=== PATIENT | male | born 1955 | race Caucasian/White ===

== ENCOUNTER 2017-05-17 12:34 | Inpatient (IN) | payer OTHER ==
[2017-05-17] MEDS ORDERED: Sodium Chloride 0.9% 10 ML Syringe FLUSH PRN (13:20)
[2017-05-17] MEDS: Sodium Chloride 0.9% 1,000 ML IV SCH ×2 (13:44→20:11)
--- NOTE | 2017-05-17 14:02 | EDM.PDOC ---
ED HPI GENERAL MEDICAL PROBLEM - General Chief Complaint: Gastrointestinal Problem Stated Complaint: BLOODY STOOLS Time Seen by Provider: 05/17/17 13:08 Source of Information: Reports: Patient, RN Notes Reviewed - History of Present Illness INITIAL COMMENTS - FREE TEXT/NARRATIVE: 61-year-old male comes in with 6 or 7 episodes of bloody stool this morning. He describes this as starting out as diarrhea but there was blood with that from the beginning. There has been more blood with subsequent episodes. This first started this morning about 5 or 6 hours ago. He has had no abdominal pain or cramping. He's had no nausea or vomiting. He has never had difficulty this nature before. He was not feeling sick at all yesterday or last evening. He does take one adult aspirin daily. He has no history for peptic ulcer disease or known prior GI problems. States he did have a colonoscopy about one year ago. He had one or 2 small polyps removed at that time. He is on aspirin 325 daily with hx of prior CVA. He has had recent URI, bronchitis. He currently is on tapering prednisone. He runs high hgb, hx sleep apnea. - Related Data Allergies Allergy/AdvReac Type Severity Reaction Status Date / Time adhesive tape Allergy Rash Verified 05/17/17 13:23 [id number] Reductase Allergy Other Verified 05/17/17 13:23 Inhibitor Home Meds: Home Meds Areds Multivitamin 2 tab PO DAILY 05/17/17 [History] Aspirin [Ecotrin] 325 mg PO DAILY 05/17/17 [History] Azelastine HCl [Astepro] 1 dose PO BID 05/17/17 [History] Cetirizine [ZyrTEC] 10 mg PO DAILY 05/17/17 [History] Cholecalciferol (Vitamin D3) [Vitamin D3] 5,000 units PO DAILY 05/17/17 [History ] EPINEPHrine [Auvi-Q] 0.3 mg IJ ASDIRECTED PRN 05/17/17 [History] Ezetimibe [Zetia] 10 mg PO DAILY 05/17/17 [History] Fenofibric Acid (Choline) [Fenofibric Acid] 135 mg PO DAILY 05/17/17 [History] Finasteride 5 mg PO DAILY 05/17/17 [History] Fluticasone Propionate [Flovent] 1 puff INH BID 05/17/17 [History] Meclizine [Antivert] 25 mg PO DAILY PRN 05/17/17 [History] Montelukast [Singulair] 10 mg PO DAILY 05/17/17 [History] Niacin [Niacin ER] 500 mg PO DAILY 05/17/17 [History] Olmesartan/Hydrochlorothiazide [Benicar HCT 40-25 MG] 0.5 tab PO DAILY 05/17/17 [History] Olmesartan/Hydrochlorothiazide [Benicar HCT 40-25 MG] 0.5 tab PO DAILY 05/17/17 [History] [place]-3S/DHA/Epa/Fish Oil [Fish Oil [place]-3 Softgel] 2 each PO DAILY 05/17/17 [ History] Omeprazole 2 tab PO DAILY 05/17/17 [History] Oxygen 1 appful INH BEDTIME 05/17/17 [History] Prednisone [IJD: Prednisone] 10 mg PO ASDIRECTED 05/17/17 [History] Sildenafil [Viagra] 100 mg PO ASDIRECTED PRN 05/17/17 [History] Sodium Chloride [Saline Mist] 1 dose NS BID 05/17/17 [History] Terazosin [Hytrin] 5 mg PO DAILY 05/17/17 [History] Testosterone Cypionate 1 ml IM ASDIRECTED 05/17/17 [History] Vitamin B Complex 1 each PO DAILY 05/17/17 [History] diphenhydrAMINE HCl [Benadryl] 50 mg PO DAILY 05/17/17 [History] Past Medical History Neurological History: Reports: CVA - Past Surgical History HEENT Surgical History: Reports: Oral Surgery, Other (See Below) Other HEENT Surgeries/Procedures: turbinectomy, septoplasty GI Surgical History: Reports: Cholecystectomy, Hernia, Abdominal Social & Family History - Tobacco Use Smoking Status *Q: Never Smoker - Caffeine Use Caffeine Use: Reports: Coffee - Recreational Drug Use Recreational Drug Use: No ED ROS GENERAL - Review of Systems Review Of Systems: See Below Constitutional: Denies: Fever, Chills, Diaphoresis HEENT: Denies: Throat Pain Respiratory: Denies: Shortness of Breath, Pleuritic Chest Pain Cardiovascular: Denies: Chest Pain GI/Abdominal: Reports: Hematochezia. Denies: Abdominal Pain, Diarrhea, Nausea, Vomiting Musculoskeletal: Reports: No Symptoms Skin: Reports: No Symptoms Neurological: Reports: No Symptoms ED EXAM, GI/ABD - Physical Exam Exam: See Below General Appearance: Alert, No Apparent Distress Eyes: Bilateral: Normal Appearance Throat/Mouth: Normal Inspection, Normal Oropharynx Head: No: Facial Swelling Neck: Supple, Full Range of Motion Respiratory/Chest: No Respiratory Distress, Lungs Clear, Normal Breath Sounds Cardiovascular: Regular Rate, Rhythm GI/Abdominal Exam: Soft, Non-Tender, Distended. No: Guarding, Rebound Rectal (Males) Exam: Bloody Stool (Small amount red to slightly dark red blood, no stool present, no palpable mass, no unusual tenderness) Back Exam: No: CVA Tenderness (L), CVA Tenderness (R) Extremities: Normal Inspection, Normal Range of Motion Neurological: Alert, Oriented, No Motor/Sensory Deficits Skin Exam: Warm, Dry, Normal Color Course - Vital Signs Last Recorded V/S: Last Vital Signs Temp 98.5 F 05/17/17 13:03 Pulse 76 05/17/17 16:04 Resp 18 05/17/17 16:04 BP 138/82 05/17/17 16:04 Pulse Ox 93 L 05/17/17 16:04 Orthostatic Blood Pressure [ 126/76 Sitting] Orthostatic Blood Pressure [ 113/84 Standing] Orthostatic Blood Pressure [ 124/77 Supine] - Orders/Labs/Meds Orders: Active Orders 24 hr Category Date Time Status Peripheral IV Care [RC] . DIRECTED Care 05/17/17 13:20 Active PATIENT RETYPE [BBK] Stat Lab 05/17/17 13:35 Results TYPE AND SCREEN [BBK] Stat Lab 05/17/17 13:35 Results Sodium Chloride 0.9% [Normal Saline] 1,000 ml Med 05/17/17 13:30 Active IV ASDIRECTED Sodium Chloride 0.9% [Saline Flush] Med 05/17/17 13:20 Active 10 ml FLUSH ASDIRECTED PRN Peripheral IV Insertion Adult [OM.PC] Stat Oth 05/17/17 13:19 Ordered Medication Orders Sodium Chloride (Normal Saline) 1,000 mls @ 150 mls/hr IV ASDIRECTED GISELA Last Admin: 05/17/17 13:44 Dose: 150 mls/hr Sodium Chloride (Saline Flush) 10 ml FLUSH ASDIRECTED PRN PRN Reason: Keep Vein Open Last Admin: 05/17/17 13:46 Dose: 10 ml Labs: Laboratory Tests 05/17/17 05/17/17 05/17/17 Range/Units 13:35 13:35 13:35 WBC 14.77 H (4.23-9.07) K/mm3 RBC 5.88 (4.63-6.08) M/mm3 Hgb 17.8 H (13.7-17.5) gm/L Hct 55.2 H (40.1-51.0) % MCV 93.9 H (79.0-92.2) fl MCH 30.3 (25.7-32.2) pg MCHC 32.2 (32.2-35.5) g/dl RDW Std Deviation 47.7 H (35.1-43.9) fL Plt Count 247 (163-337) K/mm3 MPV 11.1 (9.4-12.3) fl Neut % (Auto) 79.4 H (34.0-67.9) % Lymph % (Auto) 14.1 L (21.8-53.1) % [place] % (Auto) 3.9 L (5.3-12.2) % Eos % (Auto) 0.1 L (0.8-7.0) Baso % (Auto) 0.1 (0.1-1.2) % Neut # (Auto) 11.72 H (1.78-5.38) K/mm3 Lymph # (Auto) 2.08 (1.32-3.57) K/mm3 [place] # (Auto) 0.58 (0.30-0.82) K/mm3 Eos # (Auto) 0.02 L (0.04-0.54) K/mm3 Baso # (Auto) 0.02 (0.01-0.08) K/mm3 Manual Slide Review Normal smear PT (8.0-13.0) SECONDS INR APTT 26 (22-36) SECONDS Sodium 136 (136-145) mEq/L Potassium 4.2 (3.5-5.1) mEq/L Chloride 103 (98-107) mEq/L Carbon Dioxide 27 (21-32) mEq/L Anion Gap 10.2 (5-15) BUN 19 H (7-18) mg/dL Creatinine 1.3 (0.7-1.3) mg/dL Est Cr Clr Drug Dosing 67.62 mL/min Estimated GFR (MDRD) 56 (>60) mL/min BUN/Creatinine Ratio 14.6 (14-18) Glucose 140 H (80-115) mg/dL Calcium 8.7 (8.5-10.1) mg/dL Total Bilirubin 0.6 (0.2-1.0) mg/dL AST 15 (15-37) U/L ALT 28 (16-63) U/L Alkaline Phosphatase 45 L (46-116) U/L Total Protein 6.8 (6.4-8.2) g/dl Albumin 3.3 L (3.4-5.0) g/dl Globulin 3.5 gm/dL Albumin/Globulin Ratio 0.9 L (1-2) Blood Type Gel Antibody Screen 05/17/17 05/17/17 Range/Units 13:35 13:35 WBC (4.23-9.07) K/mm3 RBC (4.63-6.08) M/mm3 Hgb (13.7-17.5) gm/L Hct (40.1-51.0) % MCV (79.0-92.2) fl MCH (25.7-32.2) pg MCHC (32.2-35.5) g/dl RDW Std Deviation (35.1-43.9) fL Plt Count (163-337) K/mm3 MPV (9.4-12.3) fl Neut % (Auto) (34.0-67.9) % Lymph % (Auto) (21.8-53.1) % [place] % (Auto) (5.3-12.2) % Eos % (Auto) (0.8-7.0) Baso % (Auto) (0.1-1.2) % Neut # (Auto) (1.78-5.38) K/mm3 Lymph # (Auto) (1.32-3.57) K/mm3 [place] # (Auto) (0.30-0.82) K/mm3 Eos # (Auto) (0.04-0.54) K/mm3 Baso # (Auto) (0.01-0.08) K/mm3 Manual Slide Review PT 11.6 (8.0-13.0) SECONDS INR 1.06 APTT (22-36) SECONDS Sodium (136-145) mEq/L Potassium (3.5-5.1) mEq/L Chloride (98-107) mEq/L Carbon Dioxide (21-32) mEq/L Anion Gap (5-15) BUN (7-18) mg/dL Creatinine (0.7-1.3) mg/dL Est Cr Clr Drug Dosing mL/min Estimated GFR (MDRD) (>60) mL/min BUN/Creatinine Ratio (14-18) Glucose (80-115) mg/dL Calcium (8.5-10.1) mg/dL Total Bilirubin (0.2-1.0) mg/dL AST (15-37) U/L ALT (16-63) U/L Alkaline Phosphatase (46-116) U/L Total Protein (6.4-8.2) g/dl Albumin (3.4-5.0) g/dl Globulin gm/dL Albumin/Globulin Ratio (1-2) Blood Type O POSITIVE Gel Antibody Screen Negative Meds: Medications Generic Name Dose Route Start Last Admin Trade Name Freq PRN Reason Stop Dose Admin Sodium Chloride 1,000 mls @ 150 mls/hr 05/17/17 13:30 05/17/17 13:44 Normal Saline IV 150 mls/hr ASDIRECTED GISELA Administration Sodium Chloride 10 ml 05/17/17 13:20 05/17/17 13:46 Saline Flush FLUSH 10 ml ASDIRECTED PRN Administration Keep Vein Open - Re-Assessments/Exams Free Text/Narrative Re-Assessment/Exam: 05/17/17 16:38. Labs are as documented. Did you orthosis, blood pressure dropped from 05/06/76 lying to 113/84 standing. Heart rate increased from 77 lying to 93 standing. We will go but is come back at 17.8. His states that he does run very high hemoglobin is on his "sleep apnea". He did have a course of antibiotics about 2 weeks ago finishing that about 4 days ago for his bronchitis, upper respiratory infection. He and his cannot tell us what that was at this time. Will put in order to check for C. difficile colitis. He has had 3 or 4 large episodes of bloody stool versus bloody diarrhea while here in the ED over the past 3 hours. His does not show any sign of comfort taking him home. Will admit for further evaluation and treatment. Departure - Departure Time of Disposition: 15:40 Disposition: Home, Self-Care 01 Condition: Fair Clinical Impression: GI bleeding Qualifiers: GI bleed type/associated pathology: unspecified gastrointestinal hemorrhage type Qualified Code(s): K92.2 - Gastrointestinal hemorrhage, unspecified - Discharge Information ED Communication - Discussed Case With (1) Discussed Case With (1): Admitting Provider (Dr Cerda, decision to admit at about 16:10) - My Orders Last 24 Hours: My Active Orders 05/17/17 13:19 Peripheral IV Insertion Adult [OM.PC] Stat 05/17/17 13:20 Peripheral IV Care [RC] . DIRECTED Sodium Chloride 0.9% [Saline Flush] 10 ml FLUSH ASDIRECTED PRN 05/17/17 13:30 Sodium Chloride 0.9% [Normal Saline] 1,000 ml IV ASDIRECTED 05/17/17 13:35 PATIENT RETYPE [BBK] Stat TYPE AND SCREEN [BBK] Stat - Assessment/Plan Last 24 Hours: My Active Orders 05/17/17 13:19 Peripheral IV Insertion Adult [OM.PC] Stat 05/17/17 13:20 Peripheral IV Care [RC] . DIRECTED Sodium Chloride 0.9% [Saline Flush] 10 ml FLUSH ASDIRECTED PRN 05/17/17 13:30 Sodium Chloride 0.9% [Normal Saline] 1,000 ml IV ASDIRECTED 05/17/17 13:35 PATIENT RETYPE [BBK] Stat TYPE AND SCREEN [BBK] Stat
--- NOTE | 2017-05-17 17:34 | PCM.HP ---
H&P History of Present Illness - General Date of Service: 05/17/17 Admit Problem/Dx: Admission Diagnosis/Problem Admission Diagnosis/Problem Rectal hemorrhage Source of Information: Patient, Family, Provider, RN Notes Reviewed, Significant Other History Limitations: Reports: No Limitations - History of Present Illness Initial Comments - Free Text/Narative: This is a 61-year-old white male with past medical history of Allergic Rhinitis/ Seasonal Allergy, HTN, HLD, GERD, RAD/Pulmonary Insufficiency, Nocturnal Hypoxemia/ROSA ELENA on 1L NC at Bedtime, Vit D Deficiency, Probable Prostate Disorder , Erectile Dysfunction, and Testosterone Deficiency who comes in with complaints of multiple episode of rectal bleed that started this morning. He reports a bloody stool but no quite sure if bright red blood per rectum. He denies having black tarry stools. He takes daily ASA but no over the counter NSAIDs. Patient carries no hx/o GI problems. He denies having been diagnosed with diverticulosis or hemorrhoids. His last colonoscopy was done about a year ago performed by Dr. Hector with benign findings according to his . Patient was recently diagnosed with URI/bronchitis and currently on taper dose of oral steroid. His initial workup in the emergency department shows a CBC remarkable for WBC of 14.77, hemoglobin of 17.8, hematocrit of 35.2, MCV of 93.9 , RDW of 47.7, neutrophils of 79.4%, lymphocytes of 14.1%, monocytes of 2.9%, and eosinophils of 0.1%. His coagulation studies are within normal limits. His chemistry is remarkable for BUN of 19, glucose of 140, alkaline phosphatase of 45, and albumin of 3.3. Most recent vital signs are temperature of 36.9C, heart rate of 78 bpm, respiratory rate 18 with 93% O2 sat on room air and a blood pressure of 139/70 mmHg. He is being admitted for evaluation of acute GI bleed. He is full code. - Related Data Allergies/Adverse Reactions: Allergies Allergy/AdvReac Type Severity Reaction Status Date / Time adhesive tape Allergy Rash Verified 05/17/17 13:23 [id number] Reductase Allergy Other Verified 05/17/17 13:23 Inhibitor Home Medications: Home Meds Areds Multivitamin 2 tab PO DAILY 05/17/17 [History] Aspirin [Ecotrin] 325 mg PO DAILY 05/17/17 [History] Azelastine HCl [Astepro] 1 dose PO BID 05/17/17 [History] Cetirizine [ZyrTEC] 10 mg PO DAILY 05/17/17 [History] Cholecalciferol (Vitamin D3) [Vitamin D3] 5,000 units PO DAILY 05/17/17 [History ] EPINEPHrine [Auvi-Q] 0.3 mg IJ ASDIRECTED PRN 05/17/17 [History] Ezetimibe [Zetia] 10 mg PO DAILY 05/17/17 [History] Fenofibric Acid (Choline) [Fenofibric Acid] 135 mg PO DAILY 05/17/17 [History] Finasteride 5 mg PO DAILY 05/17/17 [History] Fluticasone Propionate [Flovent] 1 puff INH BID 05/17/17 [History] Meclizine [Antivert] 25 mg PO DAILY PRN 05/17/17 [History] Montelukast [Singulair] 10 mg PO DAILY 05/17/17 [History] Niacin [Niacin ER] 500 mg PO DAILY 05/17/17 [History] Olmesartan/Hydrochlorothiazide [Benicar HCT 40-25 MG] 0.5 tab PO DAILY 05/17/17 [History] Olmesartan/Hydrochlorothiazide [Benicar HCT 40-25 MG] 0.5 tab PO DAILY 05/17/17 [History] [place]-3S/DHA/Epa/Fish Oil [Fish Oil [place]-3 Softgel] 2 each PO DAILY 05/17/17 [ History] Omeprazole 2 tab PO DAILY 05/17/17 [History] Oxygen 1 appful INH BEDTIME 05/17/17 [History] Prednisone [IJD: Prednisone] 10 mg PO ASDIRECTED 05/17/17 [History] Sildenafil [Viagra] 100 mg PO ASDIRECTED PRN 05/17/17 [History] Sodium Chloride [Saline Mist] 1 dose NS BID 05/17/17 [History] Terazosin [Hytrin] 5 mg PO DAILY 05/17/17 [History] Testosterone Cypionate 1 ml IM ASDIRECTED 05/17/17 [History] Vitamin B Complex 1 each PO DAILY 05/17/17 [History] diphenhydrAMINE HCl [Benadryl] 50 mg PO DAILY 05/17/17 [History] Past Medical History Neurological History: Reports: CVA - Past Surgical History HEENT Surgical History: Reports: Oral Surgery, Other (See Below) Other HEENT Surgeries/Procedures: turbinectomy, septoplasty GI Surgical History: Reports: Cholecystectomy, Hernia, Abdominal Social & Family History - Tobacco Use Smoking Status *Q: Never Smoker - Caffeine Use Caffeine Use: Reports: Coffee - Recreational Drug Use Recreational Drug Use: No H&P Review of Systems - Review of Systems: Review Of Systems: See Below General: Denies: Fever, Chills, Malaise, Weakness, Fatigue, Decreased Appetite, Weight Loss HEENT: Reports: No Symptoms Pulmonary: Denies: Shortness of Breath Cardiovascular: Denies: Chest Pain, Palpitations, Dyspnea on Exertion, Lightheadedness, Syncope Gastrointestinal: Reports: Flatus, Hematochezia. Denies: Abdominal Pain, Anorexia, Black Stool, Bloody Stool, Constipation, Diarrhea, Decreased Appetite , Difficulty Swallowing, Distension, Hematemesis, Melena, Mucous in Stool, Nausea, Stool Incontinence, Vomiting Genitourinary: Reports: No Symptoms Musculoskeletal: Reports: No Symptoms Skin: Denies: Cyanosis, Mottled, Pallor, Diaphoresis, Bruising, Pruritis, Rash, Change in Color, Change in Hair/Nails Psychiatric: Denies: Confusion, Depression, Anxiety, Agitation, Hallucinations, Suicidal Ideation, Homicidal Ideation Neurological: Denies: Confusion, Dizziness, Syncope, Difficulty Walking, Weakness, Gait Disturbance Hematologic/Lymphatic: Denies: Anemia, Easy Bleeding, Easy Bruising Immunologic: Reports: No Symptoms Exam - Exam Exam: See Below - Vital Signs Vital Signs: Last Vital Signs Temp 36.9 C 05/17/17 17:16 Pulse 78 05/17/17 17:16 Resp 20 05/17/17 17:16 BP 139/70 05/17/17 17:16 Pulse Ox 93 L 05/17/17 17:16 Weight: 135.624 kg - Exam General: Alert, Oriented, Cooperative, Mild Distress HEENT: Conjunctiva Clear, EACs Clear, EOMI, Hearing Intact, Mucosa Moist & [place] , Nares Patent, Normal Nasal Septum, Posterior Pharynx Clear, Pupils Equal, Pupils Reactive Neck: Supple, Trachea Midline, +2 Carotid Pulse wo Bruit, Full Range of Motion Lungs: Clear to Auscultation, Normal Respiratory Effort Cardiovascular: Regular Rate, Regular Rhythm GI/Abdominal Exam: Normal Bowel Sounds, Soft, Non-Tender, No Organomegaly, No Distention, No Abnormal Bruit, No Mass, Other (Enlarged and round). No: Distended, Guarding, Rigid, Rebound, Tender (Male) Exam: Deferred Rectal (Males) Exam: Deferred Back Exam: Normal Inspection, Full Range of Motion Extremities: Normal Inspection, Normal Range of Motion, Non-Tender, No Pedal Edema, Normal Capillary Refill Peripheral Pulses: 3+: Posterior Tibial (L), Posterior Tibial (R), Dorsalis Pedis (L), Dorsalis Pedis (R) Skin: Warm, Dry, Intact Neuro Extensive - Mental Status: Oriented x3, Normal Cognition, Memory Intact Neuro Extensive - Motor, Sensory, Reflexes: CN II-XII Intact, Normal Gait Psychiatric: Alert, Normal Affect, Normal Mood - Patient Data Result Diagrams: 05/17/17 13:35 05/17/17 13:35 *Q Meaningful Use (ADM) - VTE *Q VTE Criteria *Q: - Stroke *Q Stroke Criteria *Q: - AMI *Q AMI Criteria *Q: Problem List Initiated/Reviewed/Updated: Yes Orders Last 24hrs: Active Orders 24 hr Category Date Time Status Admission Status [Patient Status] [ADT] Routine ADT 05/17/17 17:05 Active C DIFFICILE BY PCR W/NAP1 [MOLEC] Stat Lab 05/17/17 16:41 Ordered Medication Orders Sodium Chloride (Normal Saline) 1,000 mls @ 150 mls/hr IV ASDIRECTED GISELA Last Admin: 05/17/17 13:44 Dose: 150 mls/hr Sodium Chloride (Saline Flush) 10 ml FLUSH ASDIRECTED PRN PRN Reason: Keep Vein Open Last Admin: 05/17/17 13:46 Dose: 10 ml Assessment/Plan Comment:: Assessment/Plan: Acute: GI Bleed - No hx/o diverticulosis or hermorrhoids - Last colonoscopy was about a year ago with B9 findings- performed by Dr. Hector - Risk Factor: Daily ASA use - No chronic NSAIDs use - Has had multiple rectal bleed throughout the day -red bloody stool; report of black tarry stool or melena - Hgb is 17.8; no baseline for comparison - Clear liquid diet - Repeat level at 2100 - Consulted Dr. 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 Hector for further eval SW/CM for d/c planning Code status: 1
[2017-05-17] MEDS ORDERED: Acetaminophen 325 MG Tab PO PRN (18:08)
[2017-05-17] MEDS ORDERED: HYDROmorphone 0.5 MG/0.5 ML Syringe IVPUSH PRN (18:08)
[2017-05-17] MEDS ORDERED: LORazepam 2 MG/ML MDV IV PRN (18:08)
[2017-05-17] MEDS ORDERED: Acetaminophen/HYDROcodone 325-5 MG Tab PO PRN (18:08)
[2017-05-17] MEDS ORDERED: Ondansetron 4 MG/2 ML SDV IV PRN (18:08)
[2017-05-17] MEDS ORDERED: Albuterol/Ipratropium 3.0-0.5 MG/3 ML Neb Soln NEB PRN (18:08)
[2017-05-17] MEDS ORDERED: Temazepam 15 MG Cap PO PRN (18:08)
[2017-05-17] MEDS ORDERED: Promethazine 12.5 MG in Sodium Chloride 0.9% 50 ML IV PRN (18:08)
[2017-05-17] MEDS ORDERED: Non-Formulary Medication 1 Each (Sildenafil [Viagra] 100 MG) PO PRN (18:36)
[2017-05-17] MEDS ORDERED: EPINEPHrine 0.3 MG/0.3 ML Pen Autoinjector IM PRN (18:36)
[2017-05-17] MEDS ORDERED: predniSONE 10 MG Tab PO SCH (18:45)
[2017-05-17] MEDS ORDERED: TESTOSTERONE CYPIONATE IM SCH (18:45)
[2017-05-17] MEDS ORDERED: OXYGEN INH SCH (21:00)
[2017-05-17] MEDS: Sodium Chloride 0.65% Nasal Spray 45 ML Bottle NAS SCH (21:35)
[2017-05-17] MEDS: diphenhydrAMINE 25 MG Cap PO SCH (22:08)
[2017-05-17] MEDS: Montelukast 10 MG Tab PO SCH (22:08)
[2017-05-17] MEDS: Finasteride 5 MG Tab PO SCH (22:08)
[2017-05-17] MEDS: Multivitamins with Minerals/Folic Acid/Lutein/Zeaxanth Tab PO SCH (22:09)
[2017-05-17] MEDS: Terazosin 5 MG Cap PO SCH (22:09)
[2017-05-18] MEDS: Sodium Chloride 0.9% 1,000 ML IV SCH ×4 (02:54→22:59)
--- NOTE | 2017-05-18 07:58 | PCM.PN ---
- General Info Date of Service: 05/18/17 Admission Dx/Problem (Free Text): Admission Diagnosis/Problem Admission Diagnosis/Problem Rectal hemorrhage Subjective Update: Follow Up Functional Status: Reports: Pain Controlled, Tolerating Diet, Ambulating, Urinating. Denies: New Symptoms - Review of Systems General: Denies: Fever, Weakness, Fatigue, Malaise, Chills HEENT: Reports: No Symptoms Pulmonary: Denies: Shortness of Breath Cardiovascular: Denies: Chest Pain Gastrointestinal: Reports: Difficulty Swallowing, Flatus, Other (rectal bleed). Denies: Abdominal Pain, Constipation, Decreased Appetite, Diarrhea, Melena, Nausea, Vomiting Genitourinary: Reports: No Symptoms, Incontinence Musculoskeletal: Reports: No Symptoms Skin: Denies: Cyanosis, Mottled, Pallor, Diaphoresis, Bruising, Rash Neurological: Denies: Confusion, Difficulty Walking, Weakness, Gait Disturbance Psychiatric: Denies: Depression, Anxiety, Agitation, Hallucinations Systems Review Comment:: No overnight or acute issues. He had 2 bowel movements-still bloody red in nature. He is clinically stable. His most recent Hgb is still stable at 15.8. He has no new complaints. He is tolerating clear liquid diet. - Patient Data Vitals - Most Recent: Last Vital Signs Temp 36.2 C 05/18/17 02:57 Pulse 60 05/18/17 02:57 Resp 16 05/18/17 02:57 BP 119/58 L 05/18/17 02:57 Pulse Ox 92 L 05/18/17 02:57 Weight - Most Recent: 130.181 kg I&O - Last 24 Hours: Intake & Output 05/17/17 05/18/17 05/18/17 22:59 06:59 14:59 Intake Total 2006 Output Total 1200 Balance 807 Lab Results Last 24 Hours: Laboratory Results - last 24 hr 05/17/17 05/17/17 05/17/17 Range/Units 18:10 21:05 22:15 WBC (4.23-9.07) K/mm3 RBC (4.63-6.08) M/mm3 Hgb 17.3 (13.7-17.5) gm/L Hct 53.7 H (40.1-51.0) % MCV (79.0-92.2) fl MCH (25.7-32.2) pg MCHC (32.2-35.5) g/dl RDW Std Deviation (35.1-43.9) fL Plt Count (163-337) K/mm3 MPV (9.4-12.3) fl Neut % (Auto) (34.0-67.9) % Lymph % (Auto) (21.8-53.1) % [place] % (Auto) (5.3-12.2) % Eos % (Auto) (0.8-7.0) Baso % (Auto) (0.1-1.2) % Neut # (Auto) (1.78-5.38) K/mm3 Lymph # (Auto) (1.32-3.57) K/mm3 [place] # (Auto) (0.30-0.82) K/mm3 Eos # (Auto) (0.04-0.54) K/mm3 Baso # (Auto) (0.01-0.08) K/mm3 Manual Slide Review Sodium (136-145) mEq/L Potassium (3.5-5.1) mEq/L Chloride (98-107) mEq/L Carbon Dioxide (21-32) mEq/L Anion Gap (5-15) BUN (7-18) mg/dL Creatinine (0.7-1.3) mg/dL Est Cr Clr Drug Dosing mL/min Estimated GFR (MDRD) (>60) mL/min BUN/Creatinine Ratio (14-18) Glucose (80-115) mg/dL Calcium (8.5-10.1) mg/dL Magnesium (1.8-2.4) mg/dl C-Reactive Protein < 0.2 (<1.0) mg/dL C.difficile 027-[id number] Presumptive negative C. difficile Tox (PCR) Negative 05/18/17 05/18/17 Range/Units 05:40 05:40 WBC 14.89 H (4.23-9.07) K/mm3 RBC 5.27 (4.63-6.08) M/mm3 Hgb 15.8 (13.7-17.5) gm/L Hct 50.2 (40.1-51.0) % MCV 95.3 H (79.0-92.2) fl MCH 30.0 (25.7-32.2) pg MCHC 31.5 L (32.2-35.5) g/dl RDW Std Deviation 48.3 H (35.1-43.9) fL Plt Count 238 (163-337) K/mm3 MPV 11.3 (9.4-12.3) fl Neut % (Auto) 69.5 H (34.0-67.9) % Lymph % (Auto) 22.3 (21.8-53.1) % [place] % (Auto) 6.3 (5.3-12.2) % Eos % (Auto) 0.3 L (0.8-7.0) Baso % (Auto) 0.1 (0.1-1.2) % Neut # (Auto) 10.35 H (1.78-5.38) K/mm3 Lymph # (Auto) 3.32 (1.32-3.57) K/mm3 [place] # (Auto) 0.94 H (0.30-0.82) K/mm3 Eos # (Auto) 0.04 (0.04-0.54) K/mm3 Baso # (Auto) 0.01 (0.01-0.08) K/mm3 Manual Slide Review Normal smear Sodium 140 (136-145) mEq/L Potassium 3.8 (3.5-5.1) mEq/L Chloride 107 (98-107) mEq/L Carbon Dioxide 28 (21-32) mEq/L Anion Gap 8.8 (5-15) BUN 19 H (7-18) mg/dL Creatinine 1.1 (0.7-1.3) mg/dL Est Cr Clr Drug Dosing 79.92 mL/min Estimated GFR (MDRD) > 60 (>60) mL/min BUN/Creatinine Ratio 17.3 (14-18) Glucose 89 (80-115) mg/dL Calcium 7.9 L (8.5-10.1) mg/dL Magnesium 1.9 (1.8-2.4) mg/dl C-Reactive Protein < 0.2 (<1.0) mg/dL C.difficile [id number] C. difficile Tox (PCR) Med Orders - Current: Current Medications Acetaminophen (Tylenol) 650 mg PO Q4H PRN PRN Reason: Pain (Mild 1-3)/fever Hydrocodone Bitart/Acetaminophen ([place] 325-5 Mg) 1 tab PO Q4H PRN PRN Reason: Pain (moderate 4-6) Albuterol/Ipratropium (Duoneb 3.0-0.5 Mg/3 Ml) 3 ml NEB Q4H PRN PRN Reason: Shortness Of Breath/wheezing Cholecalciferol (Vitamin D3) 5,000 units PO DAILY [facility] Diphenhydramine HCl (Benadryl) 50 mg PO BEDTIME [facility] Last Admin: 05/17/17 22:08 Dose: 50 mg Epinephrine HCl (Epipen) 0.3 mg IM ASDIRECTED PRN PRN Reason: allergic rxn Finasteride (Proscar) 5 mg PO BEDTIME [facility] Last Admin: 05/17/17 22:08 Dose: 5 mg Hydrochlorothiazide (Hydrochlorothiazide) 12.5 mg PO DAILY [facility] Hydromorphone HCl (Dilaudid) 0.25 mg IVPUSH Q2H PRN PRN Reason: Pain (severe 7-10) Sodium Chloride (Normal Saline) 1,000 mls @ 150 mls/hr IV ASDIRECTED [facility] Last Admin: 05/18/17 02:54 Dose: 150 mls/hr Promethazine HCl 12.5 mg/ (Sodium Chloride) 50.5 mls @ 100 mls/hr IV Q6H PRN PRN Reason: Nausea/Vomiting Loratadine (Claritin) 10 mg PO DAILY [facility] Lorazepam (Ativan) 1 mg IV Q6H PRN PRN Reason: Anxiety Losartan Potassium (Cozaar) 50 mg PO DAILY [facility] Meclizine HCl (Antivert) 25 mg PO DAILY PRN PRN Reason: nausea/vertigo Montelukast Sodium (Singulair) 10 mg PO BEDTIME [facility] Last Admin: 05/17/17 22:08 Dose: 10 mg Non-Formulary Medication (Azelastine Hcl [Astepro]) 1 dose PO BID [facility] Non-Formulary Medication (Fluticasone Propionate [Flovent]) 1 puff INH BID [facility] Non-Formulary Medication (Omeprazole [Omeprazole]) 2 tab PO DAILY [facility] Non-Formulary Medication (Testosterone Cypionate [Testosterone Cypionate]) 1 ml IM ASDIRECTED [facility] Ondansetron HCl (Zofran) 4 mg IV Q6H PRN PRN Reason: Nausea/Vomiting Prednisone (Prednisone) 10 mg PO ASDIRECTED [facility] Sodium Chloride (Saline Flush) 10 ml FLUSH ASDIRECTED PRN PRN Reason: Keep Vein Open Last Admin: 05/17/17 13:46 Dose: 10 ml Sodium Chloride ([place] Nasal [place]) 0 ml ARI BID [facility] Last Admin: 05/17/17 21:35 Dose: 1 applic Temazepam (Restoril) 15 mg PO BEDTIME PRN PRN Reason: Sleep Terazosin HCl (Hytrin) 5 mg PO BEDTIME [facility] Last Admin: 05/17/17 22:09 Dose: 5 mg Vit A/Vit C/Vit E/Selen/Cu/Zn/Lutei (Icaps Mv) 2 tab PO BEDTIME [facility] Last Admin: 05/17/17 22:09 Dose: 2 tab Vitamin B Complex/Vitamin C (Super B With Vitamin C) 1 cap PO DAILY [facility] Discontinued Medications Non-Formulary Medication (Olmesartan/Hydrochlorothiazide [Benicar Hct 40-25 Mg] ) 0.5 tab PO DAILY [facility] Non-Formulary Medication (Sildenafil [Viagra]) 100 mg PO ASDIRECTED PRN PRN Reason: sexual activity - Exam General: Alert, Oriented, Cooperative, No Acute Distress HEENT: Pupils Equal, Pupils Reactive, EOMI, Mucous Membr. Moist/[place] Neck: Supple, Trachea Midline, No JVD Lungs: Clear to Auscultation, Normal Respiratory Effort Cardiovascular: Regular Rate, Regular Rhythm GI/Abdominal Exam: Normal Bowel Sounds, Soft, Non-Tender, No Organomegaly, No Distention, No Abnormal Bruit, No Mass, Other (enlarged and round) (Male) Exam: Deferred Back Exam: Normal Inspection, Decreased Range of Motion Extremities: Normal Inspection, Normal Range of Motion, Non-Tender, No Pedal Edema, Normal Capillary Refill Peripheral Pulses: 2+: Dorsalis Pedis (L), Dorsalis Pedis (R) Skin: Warm, Dry, Intact Neurological: No New Focal Deficit Psy/Mental Status: Alert, Normal Affect, Normal Mood - Problem List Review Problem List Initiated/Reviewed/Updated: Yes - My Orders Last 24 Hours: My Active Orders 05/17/17 18:08 Height and Weight [RC] 04 Intake and Output [RC] 04,16 Oxygen Therapy [RC] PRN Up With Assistance [RC] DAILY Up ad Annabel [RC] DAILY VTE/DVT Education [RC] DAILY Vital Signs [RC] 00,04,08,12,16,20 Acetaminophen [Tylenol] 650 mg PO Q4H PRN Acetaminophen/HYDROcodone [[place] 325-5 MG] 1 tab PO Q4H PRN Albuterol/Ipratropium [DuoNeb 3.0-0.5 MG/3 ML] 3 ml NEB Q4H PRN HYDROmorphone [Dilaudid] 0.25 mg IVPUSH Q2H PRN LORazepam [Ativan] 1 mg IV Q6H PRN Ondansetron [Zofran] 4 mg IV Q6H PRN Promethazine [Phenergan] 12.5 mg Sodium Chloride 0.9% [Normal Saline] 50 ml IV Q6H Temazepam [Restoril] 15 mg PO BEDTIME PRN Resuscitation Status Routine 05/17/17 18:09 Sequential Compression Device [OM.PC] Per Unit Routine 05/17/17 18:10 Antiembolic Devices [RC] BID RT Aerosol Therapy [RC] ASDIRECTED Consult to Physician [CONS] Routine 05/17/17 18:11 Notify Provider Consults [RC] DAILY 05/17/17 18:36 EPINEPHrine [Epipen] 0.3 mg IM ASDIRECTED PRN Meclizine [Antivert] 25 mg PO DAILY PRN 05/17/17 18:45 Testosterone Cypionate [Testosterone Cypionate] 1 ml IM ASDIRECTED predniSONE 10 mg PO ASDIRECTED 05/17/17 21:00 Azelastine HCl [Astepro] 1 dose PO BID Finasteride [Proscar] 5 mg PO BEDTIME Fluticasone Propionate [Flovent] 1 puff INH BID Montelukast [Singulair] 10 mg PO BEDTIME Multivitamins/Min/FA/Lut/Zeax [ICaps MV] 2 tab PO BEDTIME Sodium Chloride 0.65% [[place] Nasal [place]] 0 ml ARI BID Terazosin [Hytrin] 5 mg PO BEDTIME diphenhydrAMINE [Benadryl] 50 mg PO BEDTIME 05/17/17 Dinner Clear Liquid Diet [DIET] 05/18/17 09:00 Cholecalciferol (Vitamin D3) [Vitamin D3] 5,000 units PO DAILY Hydrochlorothiazide 12.5 mg PO DAILY Loratadine [Claritin] 10 mg PO DAILY Losartan [Cozaar] 50 mg PO DAILY Omeprazole [Omeprazole] 2 tab PO DAILY Vitamin B Complex with C [Super B With Vitamin C] 1 cap PO DAILY 05/19/17 05:11 BASIC METABOLIC PANEL,BMP [CHEM] AM CBC WITH AUTO DIFF [HEME] AM MAGNESIUM [CHEM] AM 05/20/17 05:11 BASIC METABOLIC PANEL,BMP [CHEM] AM CBC WITH AUTO DIFF [HEME] AM MAGNESIUM [CHEM] AM 05/21/17 05:11 BASIC METABOLIC PANEL,BMP [CHEM] AM CBC WITH AUTO DIFF [HEME] AM MAGNESIUM [CHEM] AM - Plan Plan:: Assessment/Plan: Acute: GI Bleed - No hx/o diverticulosis or hermorrhoids - Last colonoscopy was about a year ago with B9 findings- performed by Dr. Hector - Risk Factor: Daily ASA use - No chronic NSAIDs use - Has had multiple rectal bleed throughout the day -red bloody stool; report of black tarry stool or melena - Hgb is 17.8; no baseline for comparison - Clear liquid diet - Repeat level at 2100 - Dr. Hector following Polycythemia - Hgb 17.8- slightly elevated--> now 15.8 - Has had hx/o pulmonary insufficiency - Risk Factor: Nocturnal Hypoxemia and ROSA ELENA - Will continue monitor Recent URI/Bronchitis - On H1B and Taper dose of Steroid - Continue home dose Singulair and Nasal [place] Chronic: Allergic Rhinitis/Seasonal Allergy HTN HLD GERD RAD/Pulmonary Insufficiency Nocturnal Hypoxemia/ROSA ELENA on 1L NC at Bedtime; he is not on CPAP Vit D Deficiency Probable Prostate Disorder Erectile Dysfunction Testosterone Deficiency Plan: He is clinically stable Continue current treatment Routine AM Labs Hold ASA/NSAIDs and Anticoags GI/DVT PPx: PPI and SCDs He is scheduled for endoscopy in AM PO status per Dr. Hector SW/CM for d/c planning Code status: 1
[2017-05-18] MEDS: AZELASTINE HCL PO SCH ×3 (08:44→21:07)
[2017-05-18] MEDS: Mometasone Furoate HFA 100mcg/Puff 13 GM Inhaler INH SCH ×3 (08:44→21:10)
[2017-05-18] MEDS ORDERED: [UNRECOGNIZED DRUG - OTHER] PO SCH (09:00)
[2017-05-18] MEDS ORDERED: Hydrochlorothiazide 12.5 MG Cap PO SCH (09:00)
[2017-05-18] MEDS ORDERED: HYDROCHLOROTHIAZIDE PO SCH (09:00)
[2017-05-18] MEDS ORDERED: Losartan 25 MG Tab PO SCH (09:00)
[2017-05-18] MEDS ORDERED: OLMESARTAN PO SCH ×2 (09:00→15:02)
[2017-05-18] MEDS: Pantoprazole 40 MG Tab.CR PO SCH ×2 (09:01→21:06)
[2017-05-18] MEDS: Sodium Chloride 0.65% Nasal Spray 45 ML Bottle NAS SCH ×2 (09:01→21:07)
[2017-05-18] MEDS: Vitamin B Complex With Vitamin C Cap PO SCH (09:01)
[2017-05-18] MEDS: Cholecalciferol (Vitamin D3) 1,000 Unit Tab PO SCH (09:02)
[2017-05-18] MEDS: Loratadine 10 MG Tab PO SCH (09:02)
--- NOTE | 2017-05-18 09:53 | PCM.CONSN ---
- General Info Date of Service: 05/18/17 - Patient Data Vitals - Most Recent: Last Vital Signs Temp 97.2 F 05/18/17 02:57 Pulse 60 05/18/17 02:57 Resp 16 05/18/17 02:57 BP 119/58 L 05/18/17 02:57 Pulse Ox 92 L 05/18/17 02:57 Weight - Most Recent: 130.181 kg I&O - Last 24 Hours: Intake & Output 05/17/17 05/18/17 05/18/17 23:59 07:59 15:59 Intake Total 2006 Output Total 1200 Balance 807 Lab Results Last 24 Hours: Laboratory Results - last 24 hr 05/17/17 05/17/17 05/17/17 Range/Units 18:10 21:05 22:15 WBC (4.23-9.07) K/mm3 RBC (4.63-6.08) M/mm3 Hgb 17.3 (13.7-17.5) gm/L Hct 53.7 H (40.1-51.0) % MCV (79.0-92.2) fl MCH (25.7-32.2) pg MCHC (32.2-35.5) g/dl RDW Std Deviation (35.1-43.9) fL Plt Count (163-337) K/mm3 MPV (9.4-12.3) fl Neut % (Auto) (34.0-67.9) % Lymph % (Auto) (21.8-53.1) % [place] % (Auto) (5.3-12.2) % Eos % (Auto) (0.8-7.0) Baso % (Auto) (0.1-1.2) % Neut # (Auto) (1.78-5.38) K/mm3 Lymph # (Auto) (1.32-3.57) K/mm3 [place] # (Auto) (0.30-0.82) K/mm3 Eos # (Auto) (0.04-0.54) K/mm3 Baso # (Auto) (0.01-0.08) K/mm3 Manual Slide Review Sodium (136-145) mEq/L Potassium (3.5-5.1) mEq/L Chloride (98-107) mEq/L Carbon Dioxide (21-32) mEq/L Anion Gap (5-15) BUN (7-18) mg/dL Creatinine (0.7-1.3) mg/dL Est Cr Clr Drug Dosing mL/min Estimated GFR (MDRD) (>60) mL/min BUN/Creatinine Ratio (14-18) Glucose (80-115) mg/dL Calcium (8.5-10.1) mg/dL Magnesium (1.8-2.4) mg/dl C-Reactive Protein < 0.2 (<1.0) mg/dL C.difficile 027-NAP1-B1 Presumptive negative C. difficile Tox (PCR) Negative 05/18/17 05/18/17 Range/Units 05:40 05:40 WBC 14.89 H (4.23-9.07) K/mm3 RBC 5.27 (4.63-6.08) M/mm3 Hgb 15.8 (13.7-17.5) gm/L Hct 50.2 (40.1-51.0) % MCV 95.3 H (79.0-92.2) fl MCH 30.0 (25.7-32.2) pg MCHC 31.5 L (32.2-35.5) g/dl RDW Std Deviation 48.3 H (35.1-43.9) fL Plt Count 238 (163-337) K/mm3 MPV 11.3 (9.4-12.3) fl Neut % (Auto) 69.5 H (34.0-67.9) % Lymph % (Auto) 22.3 (21.8-53.1) % [place] % (Auto) 6.3 (5.3-12.2) % Eos % (Auto) 0.3 L (0.8-7.0) Baso % (Auto) 0.1 (0.1-1.2) % Neut # (Auto) 10.35 H (1.78-5.38) K/mm3 Lymph # (Auto) 3.32 (1.32-3.57) K/mm3 [place] # (Auto) 0.94 H (0.30-0.82) K/mm3 Eos # (Auto) 0.04 (0.04-0.54) K/mm3 Baso # (Auto) 0.01 (0.01-0.08) K/mm3 Manual Slide Review Normal smear Sodium 140 (136-145) mEq/L Potassium 3.8 (3.5-5.1) mEq/L Chloride 107 (98-107) mEq/L Carbon Dioxide 28 (21-32) mEq/L Anion Gap 8.8 (5-15) BUN 19 H (7-18) mg/dL Creatinine 1.1 (0.7-1.3) mg/dL Est Cr Clr Drug Dosing 79.92 mL/min Estimated GFR (MDRD) > 60 (>60) mL/min BUN/Creatinine Ratio 17.3 (14-18) Glucose 89 (80-115) mg/dL Calcium 7.9 L (8.5-10.1) mg/dL Magnesium 1.9 (1.8-2.4) mg/dl C-Reactive Protein < 0.2 (<1.0) mg/dL C.difficile 027-NAP1-B1 C. difficile Tox (PCR) Med Orders - Current: Current Medications Acetaminophen (Tylenol) 650 mg PO Q4H PRN PRN Reason: Pain (Mild 1-3)/fever Hydrocodone Bitart/Acetaminophen ([place] 325-5 Mg) 1 tab PO Q4H PRN PRN Reason: Pain (moderate 4-6) Albuterol/Ipratropium (Duoneb 3.0-0.5 Mg/3 Ml) 3 ml NEB Q4H PRN PRN Reason: Shortness Of Breath/wheezing Cholecalciferol (Vitamin D3) 5,000 units PO DAILY [facility] Last Admin: 05/18/17 09:02 Dose: 5,000 units Diphenhydramine HCl (Benadryl) 50 mg PO BEDTIME [facility] Last Admin: 05/17/17 22:08 Dose: 50 mg Epinephrine HCl (Epipen) 0.3 mg IM ASDIRECTED PRN PRN Reason: allergic rxn Finasteride (Proscar) 5 mg PO BEDTIME [facility] Last Admin: 05/17/17 22:08 Dose: 5 mg Hydrochlorothiazide (Hydrochlorothiazide) 12.5 mg PO DAILY [facility] Last Admin: 05/18/17 09:01 Dose: 12.5 mg Hydromorphone HCl (Dilaudid) 0.25 mg IVPUSH Q2H PRN PRN Reason: Pain (severe 7-10) Sodium Chloride (Normal Saline) 1,000 mls @ 150 mls/hr IV ASDIRECTED [facility] Last Admin: 05/18/17 09:32 Dose: 150 mls/hr Promethazine HCl 12.5 mg/ (Sodium Chloride) 50.5 mls @ 100 mls/hr IV Q6H PRN PRN Reason: Nausea/Vomiting Loratadine (Claritin) 10 mg PO DAILY [facility] Last Admin: 05/18/17 09:02 Dose: 10 mg Lorazepam (Ativan) 1 mg IV Q6H PRN PRN Reason: Anxiety Losartan Potassium (Cozaar) 50 mg PO DAILY [facility] Meclizine HCl (Antivert) 25 mg PO DAILY PRN PRN Reason: nausea/vertigo Mometasone Furoate (Asmanex Hfa 100mcg) 0 gm INH BID [facility] Last Admin: 05/18/17 08:44 Dose: Not Given Montelukast Sodium (Singulair) 10 mg PO BEDTIME [facility] Last Admin: 05/17/17 22:08 Dose: 10 mg Ondansetron HCl (Zofran) 4 mg IV Q6H PRN PRN Reason: Nausea/Vomiting Pantoprazole Sodium (Protonix) 40 mg PO BID [facility] Last Admin: 05/18/17 09:01 Dose: 40 mg Azelastine Hcl [ (Astepro] 1 Dose) 0 each PO BID [facility] Last Admin: 05/18/17 08:44 Dose: Not Given Prednisone (Prednisone) 10 mg PO ASDIRECTED [facility] Sodium Chloride (Saline Flush) 10 ml FLUSH ASDIRECTED PRN PRN Reason: Keep Vein Open Last Admin: 05/17/17 13:46 Dose: 10 ml Sodium Chloride ([place] Nasal [place]) 0 ml ARI BID [facility] Last Admin: 05/18/17 09:01 Dose: 1 applic Temazepam (Restoril) 15 mg PO BEDTIME PRN PRN Reason: Sleep Terazosin HCl (Hytrin) 5 mg PO BEDTIME [facility] Last Admin: 05/17/17 22:09 Dose: 5 mg Vit A/Vit C/Vit E/Selen/Cu/Zn/Lutei (Icaps Mv) 2 tab PO BEDTIME [facility] Last Admin: 05/17/17 22:09 Dose: 2 tab Vitamin B Complex/Vitamin C (Super B With Vitamin C) 1 cap PO DAILY [facility] Last Admin: 05/18/17 09:01 Dose: 1 cap Discontinued Medications Non-Formulary Medication (Olmesartan/Hydrochlorothiazide [Benicar Hct 40-25 Mg] ) 0.5 tab PO DAILY [facility] Non-Formulary Medication (Sildenafil [Viagra]) 100 mg PO ASDIRECTED PRN PRN Reason: sexual activity Non-Formulary Medication (Testosterone Cypionate [Testosterone Cypionate]) 1 ml IM ASDIRECTED [facility] Consult PN Assessment/Plan Procedures: Procedures BLOOD CULTURE FOR BACTERIA (06/20/14) CT THORAX W/O DYE (06/22/14) CULTURE OTHR SPECIMN AEROBIC (06/20/14) MEASURE BLOOD OXYGEN LEVEL (03/31/17) MRI LUMBAR SPINE W/O DYE (03/07/15) MYCOPLASMA ANTIBODY (06/20/14) SMEAR GRAM STAIN (06/20/14) TISSUE EXAM BY PATHOLOGIST (12/20/14) X-RAY EXAM OF SKULL (03/07/15) Problem List Initiated/Reviewed/Updated: Yes Plan: surgical consult dictated CLAUDE
[2017-05-18] MEDS ORDERED: PREDNISONE 10 MG PO ONE (10:15)
[2017-05-18] MEDS: AZELASTINE 0.15% NAS SCH ×2 (11:40→21:08)
--- NOTE | 2017-05-18 12:19 | PCM.PREANE ---
Preanesthetic Assessment - Anesthesia/Transfusion/Family Hx Anesthesia History: Prior Anesthesia Reaction Type of Anesthesia Reaction: Excessive Somnolence Family History of Anesthesia Reaction: Yes Family History of Anesthesia Reaction, Other: Mother excessive somnolence Transfusion History: No Prior Transfusion(s) - Review of Systems General: No Symptoms Pulmonary: Other (Wears oxygen at night 1L/NC. For 5 years. Recent bronchitis completed antibiotics. Weaning steroids. ) Cardiovascular: No Symptoms, Other (Negative Stress Test 2 years ago per patient. 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 ) Other: Reports: None - Physical Assessment Pulse: 53 O2 Sat by Pulse Oximetry: 97 Respiratory Rate: 20 Blood Pressure: 119/74 Temperature: 36.6 C Vital Signs: Last Vital Signs Temp 36.6 C 05/18/17 07:27 Pulse 53 L 05/18/17 07:27 Resp 20 05/18/17 07:27 BP 119/74 05/18/17 07:27 Pulse Ox 97 05/18/17 07:27 Height: 1.88 m Weight: 130.181 kg ASA Class: 3 Mental Status: Alert & Oriented x3 Airway Class: Mallampati = 2 Dentition: Reports: Bridge (Front tooth) Thyro-Mental Finger Breadths: 3 Mouth Opening Finger Breadths: 3 ROM/Head Extension: Full Lungs: Clear to Auscultation, Normal Respiratory Effort Cardiovascular: Irregular Rhythm (Patient states it was noted with his last stress test. Becomes regular with exercise. ) - Lab Values: Laboratory Last Values WBC 14.89 K/mm3 (4.23-9.07) H 05/18/17 05:40 RBC 5.27 M/mm3 (4.63-6.08) 05/18/17 05:40 Hgb 15.8 gm/L (13.7-17.5) 05/18/17 05:40 Hct 50.2 % (40.1-51.0) 05/18/17 05:40 MCV 95.3 fl (79.0-92.2) H 05/18/17 05:40 MCH 30.0 pg (25.7-32.2) 05/18/17 05:40 MCHC 31.5 g/dl (32.2-35.5) L 05/18/17 05:40 RDW Std Deviation 48.3 fL (35.1-43.9) H 05/18/17 05:40 Plt Count 238 K/mm3 (163-337) 05/18/17 05:40 MPV 11.3 fl (9.4-12.3) 05/18/17 05:40 Neut % (Auto) 69.5 % (34.0-67.9) H 05/18/17 05:40 Lymph % (Auto) 22.3 % (21.8-53.1) 05/18/17 05:40 [place] % (Auto) 6.3 % (5.3-12.2) 05/18/17 05:40 Eos % (Auto) 0.3 (0.8-7.0) L 05/18/17 05:40 Baso % (Auto) 0.1 % (0.1-1.2) 05/18/17 05:40 Neut # (Auto) 10.35 K/mm3 (1.78-5.38) H 05/18/17 05:40 Lymph # (Auto) 3.32 K/mm3 (1.32-3.57) 05/18/17 05:40 [place] # (Auto) 0.94 K/mm3 (0.30-0.82) H 05/18/17 05:40 Eos # (Auto) 0.04 K/mm3 (0.04-0.54) 05/18/17 05:40 Baso # (Auto) 0.01 K/mm3 (0.01-0.08) 05/18/17 05:40 Manual Slide Review Normal smear 05/18/17 05:40 PT 11.6 SECONDS (8.0-13.0) 05/17/17 13:35 INR 1.06 05/17/17 13:35 APTT 26 SECONDS (22-36) 05/17/17 13:35 Sodium 140 mEq/L (136-145) 05/18/17 05:40 Potassium 3.8 mEq/L (3.5-5.1) 05/18/17 05:40 Chloride 107 mEq/L (98-107) 05/18/17 05:40 Carbon Dioxide 28 mEq/L (21-32) 05/18/17 05:40 Anion Gap 8.8 (5-15) 05/18/17 05:40 BUN 19 mg/dL (7-18) H 05/18/17 05:40 Creatinine 1.1 mg/dL (0.7-1.3) 05/18/17 05:40 Est Cr Clr Drug Dosing 79.92 mL/min 05/18/17 05:40 Estimated GFR (MDRD) > 60 mL/min (>60) 05/18/17 05:40 BUN/Creatinine Ratio 17.3 (14-18) 05/18/17 05:40 Glucose 89 mg/dL (80-115) 05/18/17 05:40 Calcium 7.9 mg/dL (8.5-10.1) L 05/18/17 05:40 Magnesium 1.9 mg/dl (1.8-2.4) 05/18/17 05:40 Total Bilirubin 0.6 mg/dL (0.2-1.0) 05/17/17 13:35 AST 15 U/L (15-37) 05/17/17 13:35 ALT 28 U/L (16-63) 05/17/17 13:35 Alkaline Phosphatase 45 U/L (46-116) L 05/17/17 13:35 C-Reactive Protein < 0.2 mg/dL (<1.0) 05/18/17 05:40 Total Protein 6.8 g/dl (6.4-8.2) 05/17/17 13:35 Albumin 3.3 g/dl (3.4-5.0) L 05/17/17 13:35 Globulin 3.5 gm/dL 05/17/17 13:35 Albumin/Globulin Ratio 0.9 (1-2) L 05/17/17 13:35 C.difficile [id number] Presumptive negative 05/17/17 22:15 C. difficile Tox (PCR) Negative 05/17/17 22:15 Blood Type O POSITIVE 05/17/17 13:35 Gel Antibody Screen Negative 05/17/17 13:35 - Allergies Allergies/Adverse Reactions: Allergies Allergy/AdvReac Type Severity Reaction Status Date / Time adhesive tape Allergy Rash Verified 05/17/17 13:23 [id number] Reductase Allergy Other Verified 05/17/17 13:23 Inhibitor - Acknowledgements Anesthesia Type Planned: MAC Pt an Appropriate Candidate for the Planned Anesthesia: Yes Alternatives and Risks of Anesthesia Discussed w Pt/Guardian: Yes Pt/Guardian Understands and Agrees with Anesthesia Plan: Yes PreAnesthesia Questionnaire Respiratory History: Reports: Bronchitis, Recurrent, Sleep Apnea (Does not wear CPAP. Could not get a mask to fit. 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 - Infectious Disease History Infectious Disease History: Reports: Chicken Pox, Measles, Meningitis, Mumps, Shingles - Past Surgical History HEENT Surgical History: Reports: Oral Surgery, Other (See Below) Other HEENT Surgeries/Procedures: turbinectomy, septoplasty GI Surgical History: Reports: Cholecystectomy, Hernia, Abdominal - SUBSTANCE USE Smoking Status *Q: Never Smoker Second Hand Smoke Exposure: No Recreational Drug Use History: No - HOME MEDS Home Medications: Home Meds [facility] Multivitamin 2 tab PO DAILY 05/17/17 [History] Aspirin [Ecotrin] 325 mg PO DAILY 05/17/17 [History] Azelastine HCl [Astepro] 1 dose ARI BID 05/17/17 [History] Cetirizine [ZyrTEC] 10 mg PO DAILY 05/17/17 [History] Cholecalciferol (Vitamin D3) [Vitamin D3] 5,000 units PO DAILY 05/17/17 [History ] EPINEPHrine [Auvi-Q] 0.3 mg IJ ASDIRECTED PRN 05/17/17 [History] Ezetimibe [Zetia] 10 mg PO DAILY 05/17/17 [History] Fenofibric Acid (Choline) [Fenofibric Acid] 135 mg PO DAILY 05/17/17 [History] Finasteride 5 mg PO DAILY 05/17/17 [History] Fluticasone Propionate [Flovent] 1 puff INH BID 05/17/17 [History] Meclizine [Antivert] 25 mg PO DAILY PRN 05/17/17 [History] Montelukast [Singulair] 10 mg PO DAILY 05/17/17 [History] Olmesartan/Hydrochlorothiazide [Benicar HCT 40-25 MG] 0.5 tab PO DAILY 05/17/17 [History] Olmesartan/Hydrochlorothiazide [Benicar HCT 40-25 MG] 0.5 tab PO DAILY 05/17/17 [History] [place]-3S/DHA/Epa/Fish Oil [Fish Oil [place]-3 Softgel] 2 each PO DAILY 05/17/17 [ History] Omeprazole 1 tab PO BID 05/17/17 [History] Oxygen 1 appful INH BEDTIME 05/17/17 [History] Prednisone [IJD: Prednisone] 10 mg PO ASDIRECTED 05/17/17 [History] Sildenafil [Viagra] 100 mg PO ASDIRECTED PRN 05/17/17 [History] Sodium Chloride [Saline [place]] 1 dose NS BID 05/17/17 [History] Terazosin [Hytrin] 5 mg PO DAILY 05/17/17 [History] Testosterone Cypionate 1 ml IM ASDIRECTED 05/17/17 [History] Vitamin B Complex 1 each PO DAILY 05/17/17 [History] diphenhydrAMINE HCl [Benadryl] 50 mg PO DAILY 05/17/17 [History] - CURRENT (IN HOUSE) MEDS Current Meds: Current Medications Acetaminophen (Tylenol) 650 mg PO Q4H PRN PRN Reason: Pain (Mild 1-3)/fever Hydrocodone Bitart/Acetaminophen ([place] 325-5 Mg) 1 tab PO Q4H PRN PRN Reason: Pain (moderate 4-6) Albuterol/Ipratropium (Duoneb 3.0-0.5 Mg/3 Ml) 3 ml NEB Q4H PRN PRN Reason: Shortness Of Breath/wheezing Cholecalciferol (Vitamin D3) 5,000 units PO DAILY [facility] Last Admin: 05/18/17 09:02 Dose: 5,000 units Diphenhydramine HCl (Benadryl) 50 mg PO BEDTIME [facility] Last Admin: 05/17/17 22:08 Dose: 50 mg Epinephrine HCl (Epipen) 0.3 mg IM ASDIRECTED PRN PRN Reason: allergic rxn Finasteride (Proscar) 5 mg PO BEDTIME [facility] Last Admin: 05/17/17 22:08 Dose: 5 mg Hydrochlorothiazide (Hydrochlorothiazide) 12.5 mg PO DAILY [facility] Last Admin: 05/18/17 09:01 Dose: 12.5 mg Hydromorphone HCl (Dilaudid) 0.25 mg IVPUSH Q2H PRN PRN Reason: Pain (severe 7-10) Sodium Chloride (Normal Saline) 1,000 mls @ 150 mls/hr IV ASDIRECTED [facility] Last Admin: 05/18/17 09:32 Dose: 150 mls/hr Promethazine HCl 12.5 mg/ (Sodium Chloride) 50.5 mls @ 100 mls/hr IV Q6H PRN PRN Reason: Nausea/Vomiting Loratadine (Claritin) 10 mg PO DAILY [facility] Last Admin: 05/18/17 09:02 Dose: 10 mg Lorazepam (Ativan) 1 mg IV Q6H PRN PRN Reason: Anxiety Losartan Potassium (Cozaar) 50 mg PO DAILY [facility] Last Admin: 05/18/17 10:53 Dose: Not Given Meclizine HCl (Antivert) 25 mg PO DAILY PRN PRN Reason: nausea/vertigo Mometasone Furoate (Asmanex Hfa 100mcg) 0 gm INH BID [facility] Last Admin: 05/18/17 08:44 Dose: Not Given Montelukast Sodium (Singulair) 10 mg PO BEDTIME [facility] Last Admin: 05/17/17 22:08 Dose: 10 mg Ondansetron HCl (Zofran) 4 mg IV Q6H PRN PRN Reason: Nausea/Vomiting Pantoprazole Sodium (Protonix) 40 mg PO BID [facility] Last Admin: 05/18/17 09:01 Dose: 40 mg Azelastine Hcl [ (Astepro] 1 Dose) 0 each PO BID [facility] Last Admin: 05/18/17 11:39 Dose: Not Given Azelastine Nasal ([place] 0.15% (Ptom)) 0 each ARI BID [facility] Last Admin: 05/18/17 11:40 Dose: 1 each Polyethylene Glycol/Electrolytes (Golytely) 4,000 ml PO ONETIME ONE Stop: 05/18/17 17:01 Prednisone (Prednisone) 20 mg PO DAILY [facility] Stop: 05/22/17 09:01 Prednisone (Prednisone) 10 mg PO DAILY [facility] Stop: 05/26/17 09:01 Prednisone (Prednisone) 5 mg PO DAILY [facility] Stop: 05/30/17 09:01 Sodium Chloride (Saline Flush) 10 ml FLUSH ASDIRECTED PRN PRN Reason: Keep Vein Open Last Admin: 05/17/17 13:46 Dose: 10 ml Sodium Chloride ([place] Nasal [place]) 0 ml ARI BID [facility] Last Admin: 05/18/17 09:01 Dose: 1 applic Temazepam (Restoril) 15 mg PO BEDTIME PRN PRN Reason: Sleep Terazosin HCl (Hytrin) 5 mg PO BEDTIME [facility] Last Admin: 05/17/17 22:09 Dose: 5 mg Vit A/Vit C/Vit E/Selen/Cu/Zn/Lutei (Icaps Mv) 2 tab PO BEDTIME [facility] Last Admin: 05/17/17 22:09 Dose: 2 tab Vitamin B Complex/Vitamin C (Super B With Vitamin C) 1 cap PO DAILY [facility] Last Admin: 05/18/17 09:01 Dose: 1 cap Discontinued Medications Non-Formulary Medication (Olmesartan/Hydrochlorothiazide [Benicar Hct 40-25 Mg] ) 0.5 tab PO DAILY [facility] Non-Formulary Medication (Sildenafil [Viagra]) 100 mg PO ASDIRECTED PRN PRN Reason: sexual activity Non-Formulary Medication (Testosterone Cypionate [Testosterone Cypionate]) 1 ml IM ASDIRECTED [facility] Prednisone (Prednisone) 10 mg PO ASDIRECTED [facility] Prednisone (Prednisone) 30 mg PO ONETIME ONE Stop: 05/18/17 10:16 Last Admin: 05/18/17 11:39 Dose: 30 mg
[2017-05-18] MEDS ORDERED: HCTZ PO SCH (15:02)
[2017-05-18] MEDS ORDERED: Polyethylene Glycol/Electrolytes 4,000 ML Bottle PO ONE (17:00)
[2017-05-18] MEDS: Terazosin 5 MG Cap PO SCH (21:04)
[2017-05-18] MEDS: Montelukast 10 MG Tab PO SCH (21:04)
[2017-05-18] MEDS: diphenhydrAMINE 25 MG Cap PO SCH (21:05)
[2017-05-18] MEDS: Multivitamins with Minerals/Folic Acid/Lutein/Zeaxanth Tab PO SCH (21:06)
[2017-05-18] MEDS: Finasteride 5 MG Tab PO SCH (21:06)
[2017-05-19] MEDS: Sodium Chloride 0.9% 1,000 ML IV SCH (05:41)
--- NOTE | 2017-05-19 07:00 | CONS ---
CONSULTING PHYSICIAN: Kvng Hector MD DATE OF CONSULTATION: 05/18/2017 HISTORY OF PRESENT ILLNESS: This is a 61-year-old male who comes in with rectal bleeding, about 11 bright red rectal stools, and dropped his hemoglobin from 17 to 15. He denied any dizziness or hypotensive episodes, nausea, vomiting, or sweating. The patient has had a colonoscopy about a year and a half ago for a similar problem and diverticulum were noted. He has had a number of problems like this in the past. Right now, at this moment, he has only had a small blood. The patient denies any use of nonsteroidals, aspirin, platelet inhibitors, or anticoagulation of any sort. He has had an ischemic stroke, but the source is not found. He has blindness in his right eye. The patient has no family history of colon cancer. The patient denies any hemorrhoids. Current medical problems are that of sleep apnea, history of ischemic stroke of unknown cause, history of pulmonary fibrosis with hypoxia. He is on O2 at nighttime and is on prednisone. The patient's past surgical history has been laparoscopic cholecystectomy. Other medical problems are polycythemia and some pulmonary hypertension, sleep apnea, and history of diverticulosis, and rectal bleeding. FAMILY HISTORY: Negative for colon cancer. REVIEW OF SYSTEMS: No chest pain, shortness of breath, cough, hoarseness, wheezing, fainting, weakness, numbness, convulsions, nausea, vomiting, indigestion, or hematemesis. Denies any diarrhea. MEDICATIONS: Per medication reconciliation form. HABITS: No smoking. No drinking. PHYSICAL EXAMINATION: VITAL SIGNS: Temperature 36, pulse 78, respirations 20, blood pressure 139/70. EYES: Sclerae are white. Extraocular muscle motion normal. Oral cavity: Healthy mucous membranes with mouth and tongue. Neck: Supple. No nodes. No thyromegaly. Trachea midline. LUNGS: Clear. No rales, rhonchi, fremitus, dullness. HEART: Heart tones regular rate. No S3, S4, jugular venous distention, or murmurs. ABDOMEN: Soft. No tenderness, guarding, or rebound. EXTREMITIES: Upper and lower extremities: No angulation deformities, or edema. NEUROLOGIC: No neurological deficit noted. Sensorineural deficit absent. Blindness in the right eye. III through XII cranial nerves intact. SKIN: Warm and dry. PSYCHIATRIC: Normal. ASSESSMENT: 1. Rectal bleeding. 2. History of diverticulosis. 3. History of blindness, one eye. 4. Ischemic stroke. 5. History of prednisone use. PLAN: For colonoscopy. Discussed the procedure, risks, and complications. He understands and consents. MMODAL /[id number]
--- NOTE | 2017-05-19 07:55 | PCM.PN ---
- General Info Date of Service: 05/19/17 Admission Dx/Problem (Free Text): Admission Diagnosis/Problem Admission Diagnosis/Problem Rectal hemorrhage Subjective Update: Follow Up Functional Status: Reports: Pain Controlled, Ambulating, Urinating. Denies: New Symptoms - Patient Data Vitals - Most Recent: Last Vital Signs Temp 36.3 C 05/19/17 03:10 Pulse 57 L 05/19/17 03:10 Resp 18 05/19/17 03:10 BP 128/67 05/19/17 03:10 Pulse Ox 93 L 05/19/17 03:10 Weight - Most Recent: 130.408 kg I&O - Last 24 Hours: Intake & Output 05/18/17 05/19/17 05/19/17 22:59 06:59 14:59 Intake Total 5034 1473 Output Total 3209 2050 Balance 1834 -577 Lab Results Last 24 Hours: Laboratory Results - last 24 hr 05/19/17 05/19/17 Range/Units 05:58 05:58 WBC 13.16 H (4.23-9.07) K/mm3 RBC 5.06 (4.63-6.08) M/mm3 Hgb 15.4 (13.7-17.5) gm/L Hct 48.3 (40.1-51.0) % MCV 95.5 H (79.0-92.2) fl MCH 30.4 (25.7-32.2) pg MCHC 31.9 L (32.2-35.5) g/dl RDW Std Deviation 48.5 H (35.1-43.9) fL Plt Count 225 (163-337) K/mm3 MPV 11.1 (9.4-12.3) fl Neut % (Auto) 71.0 H (34.0-67.9) % Lymph % (Auto) 21.3 L (21.8-53.1) % [place] % (Auto) 6.1 (5.3-12.2) % Eos % (Auto) 0.3 L (0.8-7.0) Baso % (Auto) 0.2 (0.1-1.2) % Neut # (Auto) 9.35 H (1.78-5.38) K/mm3 Lymph # (Auto) 2.80 (1.32-3.57) K/mm3 [place] # (Auto) 0.80 (0.30-0.82) K/mm3 Eos # (Auto) 0.04 (0.04-0.54) K/mm3 Baso # (Auto) 0.02 (0.01-0.08) K/mm3 Manual Slide Review Normal smear Sodium 144 (136-145) mEq/L Potassium 3.8 (3.5-5.1) mEq/L Chloride 110 H (98-107) mEq/L Carbon Dioxide 26 (21-32) mEq/L Anion Gap 11.8 (5-15) BUN 16 (7-18) mg/dL Creatinine 1.0 (0.7-1.3) mg/dL Est Cr Clr Drug Dosing 87.91 mL/min Estimated GFR (MDRD) > 60 (>60) mL/min BUN/Creatinine Ratio 16.0 (14-18) Glucose 89 (80-115) mg/dL Calcium 7.8 L (8.5-10.1) mg/dL Magnesium 2.0 (1.8-2.4) mg/dl Med Orders - Current: Current Medications Acetaminophen (Tylenol) 650 mg PO Q4H PRN PRN Reason: Pain (Mild 1-3)/fever Hydrocodone Bitart/Acetaminophen ([place] 325-5 Mg) 1 tab PO Q4H PRN PRN Reason: Pain (moderate 4-6) Albuterol/Ipratropium (Duoneb 3.0-0.5 Mg/3 Ml) 3 ml NEB Q4H PRN PRN Reason: Shortness Of Breath/wheezing Cholecalciferol (Vitamin D3) 5,000 units PO DAILY [facility] Last Admin: 05/18/17 09:02 Dose: 5,000 units Diphenhydramine HCl (Benadryl) 50 mg PO BEDTIME [facility] Last Admin: 05/18/17 21:05 Dose: 50 mg Ezetimibe (Zetia) 10 mg PO DAILY [facility] Epinephrine HCl (Epipen) 0.3 mg IM ASDIRECTED PRN PRN Reason: allergic rxn Finasteride (Proscar) 5 mg PO BEDTIME [facility] Last Admin: 05/18/17 21:06 Dose: 5 mg Hydromorphone HCl (Dilaudid) 0.25 mg IVPUSH Q2H PRN PRN Reason: Pain (severe 7-10) Sodium Chloride (Normal Saline) 1,000 mls @ 150 mls/hr IV ASDIRECTED [facility] Last Admin: 05/19/17 05:41 Dose: 150 mls/hr Promethazine HCl 12.5 mg/ (Sodium Chloride) 50.5 mls @ 100 mls/hr IV Q6H PRN PRN Reason: Nausea/Vomiting Loratadine (Claritin) 10 mg PO DAILY [facility] Last Admin: 05/18/17 09:02 Dose: 10 mg Lorazepam (Ativan) 1 mg IV Q6H PRN PRN Reason: Anxiety Meclizine HCl (Antivert) 25 mg PO DAILY PRN PRN Reason: nausea/vertigo Mometasone Furoate (Asmanex Hfa 100mcg) 0 gm INH BID [facility] Last Admin: 05/18/17 21:10 Dose: Not Given Montelukast Sodium (Singulair) 10 mg PO BEDTIME [facility] Last Admin: 05/18/17 21:04 Dose: 10 mg Ondansetron HCl (Zofran) 4 mg IV Q6H PRN PRN Reason: Nausea/Vomiting Pantoprazole Sodium (Protonix) 40 mg PO BID [facility] Last Admin: 05/18/17 21:06 Dose: 40 mg Azelastine Hcl [ (Astepro] 1 Dose) 0 each PO BID [facility] Last Admin: 05/18/17 21:07 Dose: Not Given Azelastine Nasal ([place] 0.15% (Ptom)) 0 each ARI BID [facility] Last Admin: 05/18/17 21:08 Dose: Not Given Fenofibric Acid Dr (Cap 135 Mg) 0 each PO DAILY [facility] Prednisone (Prednisone) 20 mg PO DAILY [facility] Stop: 05/22/17 09:01 Prednisone (Prednisone) 10 mg PO DAILY [facility] Stop: 05/26/17 09:01 Prednisone (Prednisone) 5 mg PO DAILY [facility] Stop: 05/30/17 09:01 Sodium Chloride (Saline Flush) 10 ml FLUSH ASDIRECTED PRN PRN Reason: Keep Vein Open Last Admin: 05/17/17 13:46 Dose: 10 ml Sodium Chloride ([place] Nasal [place]) 0 ml ARI BID [facility] Last Admin: 05/18/17 21:07 Dose: 1 applic Temazepam (Restoril) 15 mg PO BEDTIME PRN PRN Reason: Sleep Terazosin HCl (Hytrin) 5 mg PO BEDTIME [facility] Last Admin: 05/18/17 21:04 Dose: 5 mg Vit A/Vit C/Vit E/Selen/Cu/Zn/Lutei (Icaps Mv) 2 tab PO BEDTIME [facility] Last Admin: 05/18/17 21:06 Dose: 2 tab Vitamin B Complex/Vitamin C (Super B With Vitamin C) 1 cap PO DAILY [facility] Last Admin: 05/18/17 09:01 Dose: 1 cap Discontinued Medications Hydrochlorothiazide (Hydrochlorothiazide) 12.5 mg PO DAILY [facility] Last Admin: 05/18/17 09:01 Dose: 12.5 mg Losartan Potassium (Cozaar) 50 mg PO DAILY [facility] Last Admin: 05/18/17 10:53 Dose: Not Given Non-Formulary Medication (Olmesartan/Hydrochlorothiazide [Benicar Hct 40-25 Mg] ) 0.5 tab PO DAILY [facility] Non-Formulary Medication (Sildenafil [Viagra]) 100 mg PO ASDIRECTED PRN PRN Reason: sexual activity Non-Formulary Medication (Testosterone Cypionate [Testosterone Cypionate]) 1 ml IM ASDIRECTED [facility] Olmesartan/Hctz 40- (25 Mg) 0 each PO DAILY [facility] Polyethylene Glycol/Electrolytes (Golytely) 4,000 ml PO ONETIME ONE Stop: 05/18/17 17:01 Last Admin: 05/18/17 17:14 Dose: 4,000 ml Prednisone (Prednisone) 10 mg PO ASDIRECTED [facility] Prednisone (Prednisone) 30 mg PO ONETIME ONE Stop: 05/18/17 10:16 Last Admin: 05/18/17 11:39 Dose: 30 mg - My Orders Last 24 Hours: My Active Orders 05/18/17 09:00 Cholecalciferol (Vitamin D3) [Vitamin D3] 5,000 units PO DAILY Loratadine [Claritin] 10 mg PO DAILY Pantoprazole [ProTONIX] 40 mg PO BID Vitamin B Complex with C [Super B With Vitamin C] 1 cap PO DAILY 05/18/17 10:30 Patient's Own Medication [Ptom] 0 each ARI BID 05/19/17 09:00 Ezetimibe [Zetia] 10 mg PO DAILY Patient's Own Medication [Ptom] 0 each PO DAILY predniSONE 20 mg PO DAILY 05/20/17 05:11 BASIC METABOLIC PANEL,BMP [CHEM] AM CBC WITH AUTO DIFF [HEME] AM MAGNESIUM [CHEM] AM 05/21/17 05:11 BASIC METABOLIC PANEL,BMP [CHEM] AM CBC WITH AUTO DIFF [HEME] AM MAGNESIUM [CHEM] AM 05/23/17 09:00 predniSONE 10 mg PO DAILY 05/27/17 09:00 predniSONE 5 mg PO DAILY - Plan Plan:: Assessment/Plan: Acute: GI Bleed - No hx/o diverticulosis or hermorrhoids - Last colonoscopy was about a year ago with B9 findings- performed by Dr. Hector - Risk Factor: Daily ASA use - No chronic NSAIDs use - Has had multiple rectal bleed throughout the day -red bloody stool; report of black tarry stool or melena - Hgb is 17.8; no baseline for comparison - Clear liquid diet - Repeat level at 2100 - Dr. Hector following Polycythemia - Hgb 17.8- slightly elevated--> now 15.8 - Has had hx/o pulmonary insufficiency - Risk Factor: Nocturnal Hypoxemia and ROSA ELENA - Will continue monitor Recent URI/Bronchitis - On H1B and Taper dose of Steroid - Continue home dose Singulair and Nasal [place] Chronic: Allergic Rhinitis/Seasonal Allergy HTN HLD GERD RAD/Pulmonary Insufficiency Nocturnal Hypoxemia/ROSA ELENA on 1L NC at Bedtime; he is not on CPAP Vit D Deficiency Probable Prostate Disorder Erectile Dysfunction Testosterone Deficiency Plan: He is clinically stable Continue current treatment Routine AM Labs Hold ASA/NSAIDs and Anticoags GI/DVT PPx: PPI and SCDs He is scheduled for endoscopy in AM PO status per Dr. Hector SW/CM for d/c planning Code status: 1
[2017-05-19] MEDS ORDERED: Lidocaine 1% 6 ML ONE (08:02)
[2017-05-19] MEDS ORDERED: fentaNYL 100 MCG/2 ML SDV ONE (08:02)
[2017-05-19] MEDS ORDERED: Propofol 200 MG/20 ML SDV ONE ×2 (08:02→10:49)
[2017-05-19] MEDS ORDERED: Ezetimibe 10 MG Tab PO SCH (09:00)
[2017-05-19] MEDS ORDERED: PREDNISONE 10 MG PO SCH (09:00)
[2017-05-19] MEDS ORDERED: FENOFIBRIC ACID 135 MG PO SCH (09:00)
[2017-05-19] MEDS: Mometasone Furoate HFA 100mcg/Puff 13 GM Inhaler INH SCH (09:37)
[2017-05-19] MEDS ORDERED: Mometasone Furoate HFA 100mcg/Puff 13 GM Inhaler INH PRN (09:39)
--- NOTE | 2017-05-19 11:08 | PCM.OPNOTE ---
- General Post-Op/Procedure Note Date of Surgery/Procedure: 05/19/17 Operative Procedure(s): colonosocopy to cecum Findings: duvertuculosis Pre Op Diagnosis: lower GI bleeding Post-Op Diagnosis: Same Anesthesia Technique: MAC Primary Surgeon: Kvng Hector EBL in mLs: 0 Complications: None Condition: Good Free Text/Narrative:: Intake & Output 05/18/17 05/19/17 05/19/17 23:59 07:59 15:59 Intake Total 1580 7273 Output Total 4296 0198 Balance 8515 -206
--- NOTE | 2017-05-19 11:13 | PCM48HPAN ---
Post Anesthesia Note - EVALUATION WITHIN 48HRS OF ANESTHETIC Vital Signs in Normal Range: Yes Patient Participated in Evaluation: Yes Respiratory Function Stable: Yes Airway Patent: Yes Cardiovascular Function Stable: Yes Hydration Status Stable: Yes Pain Control Satisfactory: Yes Nausea and Vomiting Control Satisfactory: Yes Mental Status Recovered: Yes
[2017-05-19] MEDS: AZELASTINE HCL PO SCH (11:30)
[2017-05-19] MEDS: Loratadine 10 MG Tab PO SCH (11:40)
[2017-05-19] MEDS: Sodium Chloride 0.65% Nasal Spray 45 ML Bottle NAS SCH (11:41)
[2017-05-19] MEDS: Pantoprazole 40 MG Tab.CR PO SCH (11:42)
[2017-05-19] MEDS: AZELASTINE 0.15% NAS SCH (11:43)
[2017-05-19] MEDS: Vitamin B Complex With Vitamin C Cap PO SCH (11:45)
[2017-05-19] MEDS: Cholecalciferol (Vitamin D3) 1,000 Unit Tab PO SCH (11:45)
--- NOTE | 2017-05-19 12:01 | PCM.DCSUM1 ---
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 He reports a bloody stool but no quite sure if bright red blood per rectum. He denies having black tarry stools. He takes daily ASA but no over the counter NSAIDs. Patient was admitted for evaluation of acute rectal bleed. - Discharge Data Discharge Date: 05/19/17 Discharge Disposition: Home, Self-Care 01 Condition: Good - Discharge Diagnosis/Problem(s) (1) Diverticulosis SNOMED Code(s): 41853351 ICD Code: K57.90 - DVRTCLOS OF INTEST, PART UNSP, W/O PERF OR ABSCESS W/O BLEED Status: Acute Qualifiers: Diverticulosis site: diverticulosis of large intestine (2) GI bleeding SNOMED Code(s): 41634351 ICD Code: K92.2 - GASTROINTESTINAL HEMORRHAGE, UNSPECIFIED Status: Acute Qualifiers: GI bleed type/associated pathology: unspecified gastrointestinal hemorrhage type Qualified Code(s): K92.2 - Gastrointestinal hemorrhage, unspecified - Patient Summary/Data Operative Procedure(s) Performed: colonosocopy to cecum Complications: None Consults: Consultations 05/17/17 18:10 Consult to Physician [CONS] Routine Labs Pending at D/C: None Recommended Follow-up Testing/Procedures: None Planned Operative Procedure(s) after DC: None Hospital Course: Patient was primarily admitted for acute GI Bleed. He carried no past medical hx /o diverticulosis, hemorrhoids, PUD or gastrointestinal malignancy. His most recent endoscopy was about a year with benign findings. On this admission, he had a few episodes of rectal bleed but his Hgb level remained stable. Dr. Hector was consulted for further evaluation and the patient underwent for endoscopy procedure. Patient tolerated the procedure w/o any complications and was found to have diverticulosis. His hospital course was uncomplicated and the rest of his chronic medical illness remained stable during this admission. Patient was stable upon discharge. He was advised to resume all home medications. He was further advised to avoid constipation by taking stool softeners or high fiber diet. And most importantly, he was advised to follow up with his PCP in 1-2 weeks. The patient expressed understanding and in agreement with the plans as discussed above. All questions were answered. - Patient Instructions Diet: Usual Diet as Tolerated Activity: As Tolerated Driving: May Drive Today Showering/Bathing: May Shower Notify Provider of: Fever, Increased Pain, Nausea and/or Vomiting Other/Special Instructions: - Please resume all home medications as directed. - Continue routine home activities as tolerated. - Avoid constipation by taking stool softener and high fiber diet. - Follow up with your PCP in 1-2 weeks - Discharge Plan Home Medications: Home Meds Areds Multivitamin 2 tab PO DAILY 05/17/17 [History] Aspirin [Ecotrin] 325 mg PO DAILY 05/17/17 [History] Azelastine HCl [Astepro] 1 dose ARI BID 05/17/17 [History] Cetirizine [ZyrTEC] 10 mg PO DAILY 05/17/17 [History] Cholecalciferol (Vitamin D3) [Vitamin D3] 5,000 units PO DAILY 05/17/17 [History ] EPINEPHrine [Auvi-Q] 0.3 mg IJ ASDIRECTED PRN 05/17/17 [History] Ezetimibe [Zetia] 10 mg PO DAILY 05/17/17 [History] Fenofibric Acid (Choline) [Fenofibric Acid] 135 mg PO DAILY 05/17/17 [History] Finasteride 5 mg PO DAILY 05/17/17 [History] Fluticasone Propionate [Flovent] 1 puff INH BID 05/17/17 [History] Meclizine [Antivert] 25 mg PO DAILY PRN 05/17/17 [History] Montelukast [Singulair] 10 mg PO DAILY 05/17/17 [History] Olmesartan/Hydrochlorothiazide [Benicar HCT 40-25 MG] 0.5 tab PO DAILY 05/17/17 [History] Olmesartan/Hydrochlorothiazide [Benicar HCT 40-25 MG] 0.5 tab PO DAILY 05/17/17 [History] [place]-3S/DHA/Epa/Fish Oil [Fish Oil [place]-3 Softgel] 2 each PO DAILY 05/17/17 [ History] Omeprazole 1 tab PO BID 05/17/17 [History] Oxygen 1 appful INH BEDTIME 05/17/17 [History] Prednisone [IJD: Prednisone] 10 mg PO ASDIRECTED 05/17/17 [History] Sildenafil [Viagra] 100 mg PO ASDIRECTED PRN 05/17/17 [History] Sodium Chloride [Saline Mist] 1 dose NS BID 05/17/17 [History] Terazosin [Hytrin] 5 mg PO DAILY 05/17/17 [History] Testosterone Cypionate 1 ml IM ASDIRECTED 05/17/17 [History] Vitamin B Complex 1 each PO DAILY 05/17/17 [History] diphenhydrAMINE HCl [Benadryl] 50 mg PO DAILY 05/17/17 [History] Patient Handouts: Gastrointestinal Bleeding, Diverticulosis Referrals: Pancho Boykin MD [Primary Care Provider] - 05/28/17 2:30 pm (Please follow up with Dr. Boykin within 1-2 weeks after discharge. Appointment made for May at 1430. ) - Discharge Summary/Plan Comment DC Time >30 min.: Yes (45 mins) Discharge Summary/Plan Comment: Discharge to Home - General Info Date of Service: 05/19/17 Admission Dx/Problem (Free Text: Admission Diagnosis/Problem Admission Diagnosis/Problem Rectal hemorrhage Subjective Update: Follow Up Functional Status: Reports: Pain Controlled, Tolerating Diet, Ambulating, Urinating. Denies: New Symptoms - Review of Systems General: Denies: Fever, Weakness, Fatigue, Malaise HEENT: Reports: No Symptoms Pulmonary: Denies: Shortness of Breath Cardiovascular: Denies: Chest Pain Gastrointestinal: Reports: Flatus. Denies: Abdominal Pain, Constipation, Decreased Appetite, Diarrhea, Melena, Nausea, Vomiting Genitourinary: Reports: No Symptoms Musculoskeletal: Reports: No Symptoms Skin: Denies: Cyanosis, Mottled, Pallor, Diaphoresis Neurological: Denies: Confusion, Difficulty Walking, Weakness, Gait Disturbance Psychiatric: Denies: Depression, Anxiety, Agitation, Hallucinations Systems Review Comment: No significant overnight or acute issues. He is doing just fine. He slept good last night. He has no complaints this am. His Hgb remained stable at 15.4 - Patient Data Vitals - Most Recent: Last Vital Signs Temp 36.8 C 05/19/17 07:38 Pulse 55 L 05/19/17 07:38 Resp 20 05/19/17 07:38 BP 145/98 H 05/19/17 07:38 Pulse Ox 99 05/19/17 09:35 Weight - Most Recent: 130.408 kg I&O - Last 24 hours: Intake & Output 05/18/17 05/19/17 05/19/17 22:59 06:59 14:59 Intake Total 5034 1473 Output Total 3209 9190 Balance 1834 -577 Lab Results - Last 24 hrs: Laboratory Results - last 24 hr 05/19/17 05/19/17 Range/Units 05:58 05:58 WBC 13.16 H (4.23-9.07) K/mm3 RBC 5.06 (4.63-6.08) M/mm3 Hgb 15.4 (13.7-17.5) gm/L Hct 48.3 (40.1-51.0) % MCV 95.5 H (79.0-92.2) fl MCH 30.4 (25.7-32.2) pg MCHC 31.9 L (32.2-35.5) g/dl RDW Std Deviation 48.5 H (35.1-43.9) fL Plt Count 225 (163-337) K/mm3 MPV 11.1 (9.4-12.3) fl Neut % (Auto) 71.0 H (34.0-67.9) % Lymph % (Auto) 21.3 L (21.8-53.1) % [place] % (Auto) 6.1 (5.3-12.2) % Eos % (Auto) 0.3 L (0.8-7.0) Baso % (Auto) 0.2 (0.1-1.2) % Neut # (Auto) 9.35 H (1.78-5.38) K/mm3 Lymph # (Auto) 2.80 (1.32-3.57) K/mm3 [place] # (Auto) 0.80 (0.30-0.82) K/mm3 Eos # (Auto) 0.04 (0.04-0.54) K/mm3 Baso # (Auto) 0.02 (0.01-0.08) K/mm3 Manual Slide Review Normal smear Sodium 144 (136-145) mEq/L Potassium 3.8 (3.5-5.1) mEq/L Chloride 110 H (98-107) mEq/L Carbon Dioxide 26 (21-32) mEq/L Anion Gap 11.8 (5-15) BUN 16 (7-18) mg/dL Creatinine 1.0 (0.7-1.3) mg/dL Est Cr Clr Drug Dosing 87.91 mL/min Estimated GFR (MDRD) > 60 (>60) mL/min BUN/Creatinine Ratio 16.0 (14-18) Glucose 89 (80-115) mg/dL Calcium 7.8 L (8.5-10.1) mg/dL Magnesium 2.0 (1.8-2.4) mg/dl Med Orders - Current: Current Medications Acetaminophen (Tylenol) 650 mg PO Q4H PRN PRN Reason: Pain (Mild 1-3)/fever Hydrocodone Bitart/Acetaminophen ([place] 325-5 Mg) 1 tab PO Q4H PRN PRN Reason: Pain (moderate 4-6) Albuterol/Ipratropium (Duoneb 3.0-0.5 Mg/3 Ml) 3 ml NEB Q4H PRN PRN Reason: Shortness Of Breath/wheezing Last Admin: 05/19/17 09:35 Dose: 3 ml Cholecalciferol (Vitamin D3) 5,000 units PO DAILY [facility] Last Admin: 05/19/17 11:45 Dose: 5,000 units Diphenhydramine HCl (Benadryl) 50 mg PO BEDTIME [facility] Last Admin: 05/18/17 21:05 Dose: 50 mg Ezetimibe (Zetia) 10 mg PO DAILY [facility] Last Admin: 05/19/17 11:45 Dose: 10 mg Epinephrine HCl (Epipen) 0.3 mg IM ASDIRECTED PRN PRN Reason: allergic rxn Finasteride (Proscar) 5 mg PO BEDTIME [facility] Last Admin: 05/18/17 21:06 Dose: 5 mg Hydromorphone HCl (Dilaudid) 0.25 mg IVPUSH Q2H PRN PRN Reason: Pain (severe 7-10) Sodium Chloride (Normal Saline) 1,000 mls @ 150 mls/hr IV ASDIRECTED [facility] Last Admin: 05/19/17 05:41 Dose: 150 mls/hr Promethazine HCl 12.5 mg/ (Sodium Chloride) 50.5 mls @ 100 mls/hr IV Q6H PRN PRN Reason: Nausea/Vomiting Loratadine (Claritin) 10 mg PO DAILY [facility] Last Admin: 05/19/17 11:40 Dose: 10 mg Lorazepam (Ativan) 1 mg IV Q6H PRN PRN Reason: Anxiety Meclizine HCl (Antivert) 25 mg PO DAILY PRN PRN Reason: nausea/vertigo Mometasone Furoate (Asmanex Hfa 100mcg) 0 gm INH BID PRN PRN Reason: Shortness of Breath Montelukast Sodium (Singulair) 10 mg PO BEDTIME [facility] Last Admin: 05/18/17 21:04 Dose: 10 mg Ondansetron HCl (Zofran) 4 mg IV Q6H PRN PRN Reason: Nausea/Vomiting Pantoprazole Sodium (Protonix) 40 mg PO BID [facility] Last Admin: 05/19/17 11:42 Dose: 40 mg Azelastine Hcl [ (Astepro] 1 Dose) 0 each PO BID [facility] Last Admin: 05/19/17 11:30 Dose: Not Given Azelastine Nasal ([place] 0.15% (Ptom)) 0 each ARI BID [facility] Last Admin: 05/19/17 11:43 Dose: Not Given Fenofibric Acid Dr (Cap 135 Mg) 0 each PO DAILY [facility] Last Admin: 05/19/17 11:43 Dose: 1 each Prednisone (Prednisone) 20 mg PO DAILY [facility] Stop: 05/22/17 09:01 Last Admin: 05/19/17 11:41 Dose: 20 mg Prednisone (Prednisone) 10 mg PO DAILY [facility] Stop: 05/26/17 09:01 Prednisone (Prednisone) 5 mg PO DAILY [facility] Stop: 05/30/17 09:01 Sodium Chloride (Saline Flush) 10 ml FLUSH ASDIRECTED PRN PRN Reason: Keep Vein Open Last Admin: 05/17/17 13:46 Dose: 10 ml Sodium Chloride ([place] Nasal [place]) 0 ml ARI BID [facility] Last Admin: 05/19/17 11:41 Dose: 1 applic Temazepam (Restoril) 15 mg PO BEDTIME PRN PRN Reason: Sleep Terazosin HCl (Hytrin) 5 mg PO BEDTIME [facility] Last Admin: 05/18/17 21:04 Dose: 5 mg Vit A/Vit C/Vit E/Selen/Cu/Zn/[place]i (Icaps Mv) 2 tab PO BEDTIME [facility] Last Admin: 05/18/17 21:06 Dose: 2 tab Vitamin B Complex/Vitamin C (Super B With Vitamin C) 1 cap PO DAILY [facility] Last Admin: 05/19/17 11:45 Dose: 1 cap Discontinued Medications Fentanyl (Sublimaze) Confirm Administered Dose 100 mcg .ROUTE .STK-MED ONE Stop: 05/19/17 08:03 Hydrochlorothiazide (Hydrochlorothiazide) 12.5 mg PO DAILY [facility] Last Admin: 05/18/17 09:01 Dose: 12.5 mg Lidocaine HCl (Xylocaine-Mpf 1%) Confirm Administered Dose 6 mls @ as directed .ROUTE .STK-MED ONE Stop: 05/19/17 08:03 Losartan Potassium (Cozaar) 50 mg PO DAILY [facility] Last Admin: 05/18/17 10:53 Dose: Not Given Mometasone Furoate (Asmanex Hfa 100mcg) 0 gm INH BID [facility] Last Admin: 05/19/17 09:37 Dose: Not Given Non-Formulary Medication (Olmesartan/Hydrochlorothiazide [Benicar Hct 40-25 Mg] ) 0.5 tab PO DAILY [facility] Non-Formulary Medication (Sildenafil [Viagra]) 100 mg PO ASDIRECTED PRN PRN Reason: sexual activity Non-Formulary Medication (Testosterone Cypionate [Testosterone Cypionate]) 1 ml IM ASDIRECTED [facility] Olmesartan/Hctz 40- (25 Mg) 0 each PO DAILY [facility] Polyethylene Glycol/Electrolytes (Golytely) 4,000 ml PO ONETIME ONE Stop: 05/18/17 17:01 Last Admin: 05/18/17 17:14 Dose: 4,000 ml Prednisone (Prednisone) 10 mg PO ASDIRECTED [facility] Prednisone (Prednisone) 30 mg PO ONETIME ONE Stop: 05/18/17 10:16 Last Admin: 05/18/17 11:39 Dose: 30 mg Propofol (Diprivan 20 Ml) Confirm Administered Dose 200 mg .ROUTE .STK-MED ONE Stop: 05/19/17 08:03 Propofol (Diprivan 20 Ml) Confirm Administered Dose 200 mg .ROUTE .[facility]-MED ONE Stop: 05/19/17 10:50 - Exam General: Reports: Alert, Oriented, Cooperative, No Acute Distress, Other (Obese) HEENT: Reports: Pupils Equal, Pupils Reactive, EOMI, Mucous Membr. Moist/[place], Scleral Icterus, Other Neck: Reports: Supple, Trachea Midline, No JVD, No Thyromegaly Lungs: Reports: Clear to Auscultation, Normal Respiratory Effort Cardiovascular: Reports: Regular Rate, Regular Rhythm GI/Abdominal Exam: Normal Bowel Sounds, Soft, Non-Tender, No Organomegaly, No Distention, No Abnormal Bruit, No Mass, Other (Obese) (Male) Exam: Deferred Rectal (Males) Exam: Deferred Back Exam: Reports: Normal Inspection, Decreased Range of Motion Extremities: Normal Inspection, Normal Range of Motion, Non-Tender, No Pedal Edema, Normal Capillary Refill Skin: Reports: Warm, Dry, Intact Neurological: Reports: No New Focal Deficit Psy/Mental Status: Reports: Alert, Normal Affect, Normal Mood *Q Meaningful Use (DIS) - VTE *Q VTE Criteria *Q: - Stroke *Q Stroke Criteria *Q: - AMI *Q AMI Criteria *Q:
--- NOTE | 2017-05-20 05:42 | OR ---
DATE OF OPERATION: 05/19/2017 SURGEON: Kvng Hector MD PREOPERATIVE DIAGNOSIS: Bright red rectal bleeding. POSTOPERATIVE DIAGNOSIS: Bright red rectal bleeding. OPERATION PERFORMED: Colonoscopy to cecum done under IV sedation. FINDINGS: Severe diverticulosis in a portion of the descending sigmoid colon, and mild internal hemorrhoids. There were no angiodysplasias, neoplasias, large tumor masses, or ulcerations. DESCRIPTION OF PROCEDURE: The patient was taken to the endoscopy room, placed in a supine position, connected to monitoring equipment, given IV sedation, and placed in the left lateral position. Perianal area was inspected, was normal. Rectal exam showed good sphincter tone. A video Olympus colonoscope was then introduced into the rectum and threaded up without problem to the ascending colon with counter pressure advanced into the cecum. The prep was good throughout the colon. [place] cleansing score grade B. The scope was slowly withdrawn showing the cecum, ascending colon, transverse colon, descending colon, sigmoid colon, and rectum. Retroflexed view was done. Careful view of the diverticulum did not so show any clots or active bleeding or evidence of blood. Retroflexed view was done. The patient tolerated the procedure, sent to recovery room in a stable condition, will be followed up as needed in the clinic. ANESTHESIA: ESTIMATED BLOOD LOSS: MMODAL /[id number]
[2017-05-23] MEDS ORDERED: PREDNISONE 10 MG PO SCH (09:00)
[2017-05-27] MEDS ORDERED: predniSONE 10 MG Tab PO SCH (09:00)
== END 2017-05-19 12:47 | disposition home or self-care (01) | DRG 379 ==
LOC: JD.ED 12:34 → JD.MS 16:27 → UNDOADMIN 16:27 → JD.MS 17:05
PROVIDERS: ADMIT Internal Medicine; ATTEND Internal Medicine
PROC: 0DJD8ZZ Inspection of Lower Intestinal Tract, Via Natural or Artificial Opening Endoscopic (ICD-10-PCS; principal; 2017-05-18)
DX: K92.1 Melena (principal); K57.30 Diverticulosis of large intestine without perforation or abscess without bleeding; K64.8 Other hemorrhoids; D75.1 Secondary polycythemia; J06.9 Acute upper respiratory infection, unspecified; J30.9 Allergic rhinitis, unspecified; G47.33 Obstructive sleep apnea (adult) (pediatric); I10 Essential (primary) hypertension; E78.5 Hyperlipidemia, unspecified; K21.9 Gastro-esophageal reflux disease without esophagitis; J45.909 Unspecified asthma, uncomplicated; J84.10 Pulmonary fibrosis, unspecified; R09.02 Hypoxemia; E55.9 Vitamin D deficiency, unspecified; N52.8 Other male erectile dysfunction; N42.9 Disorder of prostate, unspecified; Z86.73 Personal history of transient ischemic attack (TIA), and cerebral infarction without residual deficits; Z88.8 Allergy status to other drugs, medicaments and biological substances; Z91.048 Other nonmedicinal substance allergy status; Z79.82 Long term (current) use of aspirin; Z79.899 Other long term (current) drug therapy
CPT/HCPCS: 36415; 80048; 80053; 83735; 85014; 85018; 85025; 85610; 85730; 86140; 86850; 86900; 86901; 87493; 93005; 94640; 94760; 96360; 96361; 99284-25; A9270; A9270-GY; J2704; J3010; J7040; J7050